=== PATIENT | female | born 1940 | race Caucasian/White ===

== ENCOUNTER 2017-06-07 08:48 | Outpatient (CLI) | payer MEDICARE, BC | END 2017-06-07 08:49 | disposition home or self-care (01) | LOC: BICMAMMO 08:48 | PROVIDERS: ATTEND Obstetrics & Gynecology | DX: Z12.31 Encounter for screening mammogram for malignant neoplasm of breast (principal) | CPT/HCPCS: 77063; 77067 ==

== ENCOUNTER 2017-12-12 20:04 | Emergency (ER) | payer MEDICARE, BC ==
[2017-12-12] MEDS ORDERED: Dexamethasone 4 mg/ml Vial ONE (22:36)
[2017-12-12] MEDS ORDERED: diphenhydrAMINE 50 MG/ML VIAL ONE (22:36)
[2017-12-12] MEDS ORDERED: Metoclopramide HCl 10 MG/2 ML VIAL ONE ×2 (22:37→23:27)
[2017-12-12 23:00] LABS: #Basophils 0.1 thou/uL (0.0-0.2); #Eosinphils 0.2 thou/uL (0.0-0.7); #Lymphocytes 1.5 thou/uL (1.20-3.40); #Monocytes 0.6 thou/uL (0.11-0.59); #Neutrophils 3.3 thou/uL (1.40-6.50); %Basophils 1.2 % (0.0-1.0); %Lymphocytes 26.1 % (21.0-51.0); %Monocytes 10.8 % (0.0-10.0); %Neutrophils 57.9 % (42.0-75.0); Hemoglobin 13.2 g/dL (12.0-16.0); Mean Corpuscular Hemoglobin 32.1 pg (27.0-31.0); Mean Corpuscular Volume 91.7 fL (78.0-98.0); Mean Platelet Volume 6.5 fL (7.4-10.4); Platelet Count 256 thou/uL (130-400); RBC Distribution Width 12.4 % (11.5-14.5); Red Blood Cell (RBC) Count 4.12 mill/uL (4.20-5.40); White Blood Cell (WBC) Count 5.8 thou/uL (4.8-10.8)
[2017-12-12 23:24] LABS: ALT (SGPT) 22 U/L (8-55); AST (SGOT) 24 U/L (5-34); Albumin 4.4 g/dL (3.4-4.8); Alkaline Phosphatase 112 U/L (40-150); Anion Gap 14 mmol/L (10-20); BUN (Urea Nitrogen) 13 mg/dL (9.8-20.1); Bilirubin, Total 0.5 mg/dL (0.2-1.2); CK (CPK) 112 U/L (29-168); Calc. Creatinine Clearance 0 mL/min (70-130); Calcium 10.3 mg/dL (7.8-10.44); Carbon Dioxide 24 mmol/L (23-31); Chloride 102 mmol/L (98-107); Estimated GFR-MDRD 77; Globulin 2.8 g/dL (2.4-3.5); Glucose 101 mg/dL (83-110); Lipase 86 U/L (8-78); Potassium 4.1 mmol/L (3.5-5.1); Protein, Total 7.2 g/dL (6.0-8.3); Sodium 136 mmol/L (136-145)
[2017-12-12 23:27] LABS: CKMB 1.8 ng/mL (0-6.6); Troponin I Less than 0.010 ng/mL (< 0.028)
--- NOTE | 2017-12-12 23:56 | CT ---
CT BRAIN WITHOUT CONTRAST 12/12/17 HISTORY: Headache. COMPARISON: CT brain 01/20/09. FINDINGS: There appears to be some chronic atrophy of the left posterior occipital lobe. This appears similar t o the 2009 examination. Moderate subcortical and deep white matter microvascular ischemic changes, ad vanced from the comparison examination. 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 Mucosal retention cyst right maxillary sinus. Calvarium is intact. Mastoids are clear. IMPRESSION: Chronic changes. No acute intracranial abnormality. POS: [facility]
== END 2017-12-13 00:21 | disposition home or self-care (01) ==
LOC: ERS 20:04
DX: R51 Headache (principal); I10 Essential (primary) hypertension; G43.909 Migraine, unspecified, not intractable, without status migrainosus; E78.5 Hyperlipidemia, unspecified; J45.909 Unspecified asthma, uncomplicated
CPT/HCPCS: 70450; 80053; 82550; 82553; 83690; 83880; 84484; 85025; 93005; 96374; 96375; J1100; J1200; J2765

== ENCOUNTER 2018-06-14 14:27 | Outpatient (CLI) | payer MEDICARE, BC ==
[2018-06-14 15:03] LABS: Estimated GFR-MDRD - POC Greater than 90
--- NOTE | 2018-06-14 15:48 | CT ---
ABDOMEN CT WITH CONTRAST PELVIC CT WITH CONTRAST 06/14/18 HISTORY: Abdominal pain, bloating, altered bowel function. COMPARISON: None. FINDINGS: ABDOMEN CT: Lung bases are clear. Heart size is normal. No pericardial effusion. There is atherosclerosis of the descending thoracic aorta and abdominal aorta. No aneurysm or periaortic fat stranding. Gallbladder is surgically absent. Portal vein is patent. Liver, spleen, pancreas and adrenal glands have appropriate attenuation and enhancement. No gastrohepatic, retrocrural or periportal lymphadenopathy. No mesenteric mass, lymphadenopathy, free air or free fluid. Symmetric enhancement of the kidneys. There are bilateral nonobstructing intrarenal calculi measuring 2 to 3 mm. Subcentimeter hypodensities in the left and right renal cortex are too small to character ize but are statistically favored to be cysts. Bilaterally, no obstructive uropathy. No mesenteric ma ss, lymphadenopathy, free air or free fluid. Gastric mucosal, duodenum, and multiple normal caliber small bowel loops are identified. Ileocecal ju nction is normal. Surgically absent appendix. Nevertheless, no inflammation of the cecal apex. Nondis tended, nondilated colon with scattered fecal material. CT PELVIS: Uterus and adnexal structures are unremarkable. There is no pelvic mass, lymphadenopathy, free air o r free fluid. No lytic or blastic lesions in the osseous structures. Mild rightward curvature of the lumbar spine. IMPRESSION: No acute abnormality in the abdomen or pelvis. POS: [facility]
[2018-06-14] MEDS ORDERED: Iopamidol 370 76% 100 ML VIAL ONE (16:42)
== END 2018-06-14 14:28 | disposition home or self-care (01) ==
LOC: BICCT 14:27
PROVIDERS: ATTEND Physician Assistant Medical
DX: R10.84 Generalized abdominal pain (principal); R14.0 Abdominal distension (gaseous); R19.4 Change in bowel habit
CPT/HCPCS: 74177; 82565; Q9967

== ENCOUNTER 2018-07-10 11:53 | Outpatient (CLI) | payer MEDICARE, BC ==
--- NOTE | 2018-07-10 13:32 | RAD ---
CHEST TWO VIEWS: History: Pneumonia. Comparison: 07-27-16, 04-29-16 FINDINGS: Normal cardiac silhouette. The pulmonary vessels and hilum are normal. Costophrenic angles are clear. No consolidation or mass. Lungs are hyperinflated. No pneumothorax or acute osseous abnormalities. 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 Stable rightward curvature of the upper lumbar spine. IMPRESSION: Hyperinflation. No acute cardiopulmonary process. POS: [facility]
== END 2018-07-10 11:54 | disposition home or self-care (01) ==
LOC: BICRAD 11:53
PROVIDERS: ATTEND Family Medicine
DX: J18.9 Pneumonia, unspecified organism (principal); R91.8 Other nonspecific abnormal finding of lung field
CPT/HCPCS: 71046

== ENCOUNTER 2018-12-28 17:44 | Observation (INO) | payer MEDICARE, BC ==
--- NOTE | 2018-12-28 18:38 | RAD ---
EXAM: Single view of the chest HISTORY: Cough COMPARISON: None FINDINGS: Single view of the chest shows a normal sized cardiomediastinal silhouette. There is no marcel dence of consolidation, mass, or pleural effusion. The bones are unremarkable. IMPRESSION: No evidence of acute cardiopulmonary disease
[2018-12-28 18:40] LABS: Bilirubin Negative (Negative); Blood, Urine Negative (Negative); Clarity Clear (Clear); Glucose, Urine (Dipstick) Normal (Negative); Leukocyte Negative Leu/uL (Negative); Nitrite Negative (Negative); Protein, Urine (Dipstick) Negative (Neg-Trace); Urobilinogen Normal mg/dL (Less than 2)
[2018-12-28 18:40] LABS: #Lymphocytes 1.2 thou/uL (1.20-3.40); #Neutrophils 14.8 thou/uL (1.40-6.50); %Basophils 0.2 % (0.0-1.0); %Eosinophils 0.1 % (0.0-10.0); %Lymphocytes 6.9 % (21.0-51.0); %Monocytes 5.6 % (0.0-10.0); %Neutrophils 87.2 % (42.0-75.0); Hemoglobin 11.7 g/dL (12.0-16.0); Mean Corpuscular HGB CONC 35.3 g/dL (32.0-36.0); Mean Corpuscular Hemoglobin 32.2 pg (27.0-31.0); Mean Corpuscular Volume 91.1 fL (78.0-98.0); Mean Platelet Volume 5.8 fL (7.4-10.4); Platelet Count 396 thou/uL (130-400); RBC Distribution Width 12.1 % (11.5-14.5); Red Blood Cell (RBC) Count 3.65 mill/uL (4.20-5.40)
[2018-12-28 18:53] LABS: ALT (SGPT) 25 U/L (8-55); AST (SGOT) 20 U/L (5-34); Albumin 4.4 g/dL (3.4-4.8); Alkaline Phosphatase 133 U/L (40-150); Anion Gap 11 mmol/L (10-20); BUN (Urea Nitrogen) 14 mg/dL (9.8-20.1); Bilirubin, Total 0.5 mg/dL (0.2-1.2); Calc. Creatinine Clearance 0 mL/min (70-130); Calcium 9.6 mg/dL (7.8-10.44); Carbon Dioxide 21 mmol/L (23-31); Chloride 95 mmol/L (98-107); Estimated GFR-MDRD 75; Globulin 2.7 g/dL (2.4-3.5); Glucose 117 mg/dL (83-110); Lipase 53 U/L (8-78); Potassium 4.3 mmol/L (3.5-5.1); Protein, Total 7.1 g/dL (6.0-8.3); Sodium 123 mmol/L (136-145)
[2018-12-28] MEDS ORDERED: Azithromycin 250 MG TAB ONE (19:59)
[2018-12-28] MEDS ORDERED: cefTRIAXone\\ROCEPHIN 1 GM VIAL ONE (19:59)
[2018-12-28] MEDS ORDERED: predniSONE 20 MG TAB ONE (20:31)
[2018-12-28 22:47] VITALS: BMI 20.1
[2018-12-28] MEDS ORDERED: Acetaminophen 325 MG TAB PO PRN (22:48)
[2018-12-28] MEDS ORDERED: Ondansetron ODT 4 MG TAB PO PRN (22:48)
[2018-12-28] MEDS ORDERED: Acetaminophen 650 MG Suppository PR PRN (22:48)
[2018-12-28] MEDS ORDERED: Ondansetron PF 4 MG/2 ML Vial IVP PRN (22:48)
[2018-12-28] MEDS ORDERED: Benzonatate 100 MG CAP PO PRN (22:52)
[2018-12-28] MEDS ORDERED: guaiFENesin 200 MG TAB PO PRN (22:52)
[2018-12-28] MEDS ORDERED: Sodium Chloride 0.9% 1,000 ML IV SCH (23:00)
[2018-12-29] MEDS ORDERED: SUMAtriptan Succinate 25 MG TAB PO PRN (01:31)
[2018-12-29] MEDS ORDERED: SUMAtriptan Succinate 25 MG TAB PO SCH (01:45)
[2018-12-29] MEDS ORDERED: Topiramate 25 MG TAB PO SCH ×3 (01:45→21:00)
--- NOTE | 2018-12-29 05:00 | HP ---
ADMISSION TIME: 10:00 p.m. PRIMARY CARE PHYSICIAN: Dr. Catracho Yang. CHIEF COMPLAINT: Cough and fever. HISTORY OF PRESENT ILLNESS: Ms. Trejo is a pleasant 78-year-old woman with a history of asthma who presented to the emergency department complaining of a low-grade temperature yesterday with a persistent cough. She apparently was recently treated for an upper respiratory tract infection with doxycycline and did not improve. She was seen by her primary care physician yesterday home on Sunday and states there was concern for a viral upper respiratory tract infection. However, she was advised to come to the emergency department if she continued to feel unwell. She had a temperature of 99 at home. In the emergency department, she underwent an EKG that showed normal sinus rhythm with a heart rate of 89. She had laboratory studies done notable for white cell count of 17 and neutrophil count of 87.2. Hemoglobin 11.7 and hematocrit 33.2. Sodium was 123, potassium 4.3, chloride 95, GFR 75. LFTs unremarkable. Troponin negative. Lipase 53. BNP 42.5. She also underwent urinalysis which was unremarkable. A chest x-ray was done showing no evidence of acute cardiopulmonary disease. The patient was started on IV antibiotics with Rocephin and azithromycin for presumed infective exacerbation of asthma. The patient was given prednisone 50 mg and also treated with DuoNebs. 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 However, her improved approximately a dsfr-ndh-r-half ago while she continued to get worse. She denies any associated chest pain or hemoptysis. No neck pain or stiffness. Denies any nausea or vomiting. No abdominal pain or cramping. Moving her bowels as normal and reports a good appetite. Denies having any urinary symptoms. All other review of systems negative. PAST MEDICAL HISTORY: 1. Migraines. 2. Hyperlipidemia. 3. Hypertension. 4. Asthma. PAST SURGICAL HISTORY: 1. Sinus surgery. 2. Right wrist surgery. 3. Right ovary removed. 4. Appendectomy. 5. Cholecystectomy. 6. Tonsillectomy. SOCIAL HISTORY: The patient is fully independent. Denies any tobacco use, alcohol consumption, or illicit drug use. PHYSICAL EXAMINATION: GENERAL: The patient appears well developed, well nourished, is in no acute distress. VITAL SIGNS: Temperature 98.7, pulse 78, respirations 20, O2 saturation 96% on room air, blood pressure 176/89, of note, initial blood pressure was 236/101. HEENT: Normocephalic and atraumatic. Pupils are equal, round, and reactive to light. Sclerae icterus. Oropharynx is clear. No exudates, erythema or lesions. NECK: Supple. LUNGS: Notable for bilateral expiratory wheezes at the bases. No crackles. CARDIAC: Regular rate and rhythm. ABDOMEN: Soft, nontender, nondistended. Normoactive bowel sounds present. EXTREMITIES: No lower leg swelling or edema. NEUROLOGIC: Alert and oriented x3. SKIN: Without rash or jaundice. INVESTIGATIONS: As mentioned above in HPI. IMPRESSION AND PLAN: Ms. Trejo is a pleasant 78-year-old woman who has been referred for management of the following. 1. Respiratory tract infection. She has a lower respiratory tract infection. The patient with low-grade temp at home, noted to have leukocytosis with left shift. She has been initiated on IV antibiotics which we will continue. We have added lactic acid. Lactic acid has come back normal. 2. Asthma. The patient states she often has flares of her asthma when she has an infection. She does not smoke. We will continue DuoNeb. We will also give guaifenesin and Tessalon Perles for her cough. 3. Hypertension. We will resume her home medications and monitor her blood pressure. 4. Migraines. The patient on Imitrex which we will resume. 5. Gastrointestinal prophylaxis with famotidine. 6. Deep venous thrombosis prophylaxis. Mechanical SCDs. The patient is ambulatory. 7. Code status full. Her surrogate decision maker is her , Samm Trejo. The patient's case was discussed with attending who agrees upon care as described above. Job ID: [id number]
[2018-12-29] MEDS ORDERED: Mometasone/Formoterol 120 PUFF INHALER INH SCH (06:30)
[2018-12-29] MEDS: Multivit, Therapeutic 1 TAB PO SCH ×2 (07:51→07:55)
[2018-12-29] MEDS ORDERED: Ezetimibe 10 MG TAB PO SCH (09:00)
[2018-12-29] MEDS ORDERED: Fish Oil 1,000 MG CAP PO SCH (09:00)
[2018-12-29] MEDS ORDERED: Famotidine/PF 20 mg/2ml Vial SLOW IVP SCH (09:00)
[2018-12-29] MEDS ORDERED: Fluticasone Propionate Nasal Spray 16 gm Bottle NASAL SCH (09:00)
[2018-12-29] MEDS ORDERED: Lisinopril 10 MG TAB PO SCH (09:00)
[2018-12-29 10:33] LABS: #Lymphocytes 0.9 thou/uL (1.20-3.40); #Monocytes 0.8 thou/uL (0.11-0.59); #Neutrophils 13.5 thou/uL (1.40-6.50); %Lymphocytes 6.2 % (21.0-51.0); %Neutrophils 88.7 % (42.0-75.0); Hemoglobin 12.2 g/dL (12.0-16.0); Mean Corpuscular HGB CONC 34.1 g/dL (32.0-36.0); Mean Corpuscular Hemoglobin 31.5 pg (27.0-31.0); Mean Corpuscular Volume 92.2 fL (78.0-98.0); Mean Platelet Volume 6.1 fL (7.4-10.4); Platelet Count 414 thou/uL (130-400); RBC Distribution Width 12.3 % (11.5-14.5); Red Blood Cell (RBC) Count 3.89 mill/uL (4.20-5.40); White Blood Cell (WBC) Count 15.2 thou/uL (4.8-10.8)
[2018-12-29 10:54] LABS: Anion Gap 14 mmol/L (10-20); BUN (Urea Nitrogen) 12 mg/dL (9.8-20.1); Calc. Creatinine Clearance 51 mL/min (70-130); Calcium 9.5 mg/dL (7.8-10.44); Carbon Dioxide 17 mmol/L (23-31); Chloride 103 mmol/L (98-107); Estimated GFR-MDRD 78; Glucose 132 mg/dL (83-110); Sodium 130 mmol/L (136-145)
[2018-12-29 12:17] VITALS: BP 110/65; TEMP 98
[2018-12-29] MEDS ORDERED: Azithromycin 500 MG in Sodium Chloride 0.9% 250 ML 250 ML IVPB SCH (20:00)
[2018-12-29] MEDS ORDERED: cefTRIAXone\\ROCEPHIN 1 GM in Sodium Chloride 0.9% 100 ML IVPB SCH (20:00)
--- NOTE | 2018-12-30 00:52 | DIS ---
DATE OF ADMISSION: 12/28/2018 DATE OF DISCHARGE: 12/29/2018 DISCHARGE DIAGNOSES: 1. Upper respiratory infection, most likely secondary to viral. 2. History of asthma. 3. Hypertension. 4. Migraines. HOSPITAL COURSE: The patient is a 78-year-old female, who recently presented to the hospital with complaints of worsening upper respiratory symptoms, worsening cough and shortness of breath. The patient was seen in the ER. She was recently started on doxycycline and was given initially a Medrol Dosepak and then her Primary Care also gave her a shot of steroids. The patient stated that she started feeling worse, so she came into the ER for further evaluation. The patient initially was treated for community-acquired pneumonia. However, her chest x-ray was completely normal. She did have leukocytosis, which was most likely secondary to her recent steroid shots. Upon my evaluation, the patient was very stable. The patient stated that she wanted to go home. She felt well. Denied any cough or fevers. I explained to the patient that she will continue to take her doxycycline; however, this is most likely viral and also will continue to take her inhaler at home. I have not prescribed her any new steroids. HOME MEDICATIONS: Her home medications will be as of the following. 1. She will take her doxycycline that was prescribed by her PCP. 2. She is on Zetia 10 mg daily. 3. Lisinopril 10 mg daily. 4. Multivitamin one p.o. daily. 5. Topiramate 50 mg daily. 6. Fluticasone salmeterol 2 inhalation b.i.d. 7. Sumatriptan 20 mg q.12 hours p.r.n. PHYSICAL EXAMINATION: VITAL SIGNS: Temperature 98.0, pulse 92, respiratory rate 16, O2 saturation 97% on room air, blood pressure 110/65. GENERAL: She is awake, alert, and oriented x3. Does not appear in distress. CV: S1, S2 present. No murmurs, rubs, or gallops. LUNGS: Clear to auscultation. No rhonchi or wheezes noted. ABDOMEN: Soft and nontender. Bowel sounds are present x2. Again, she will be discharged home. She will follow up with her primary as needed. I have told her to get some rest for the next couple of days and continue her medications and follow up with her primary as needed. Job ID: [id number]
--- NOTE | 2019-01-04 15:55 | EKG ---
Test Reason : Blood Pressure : / mmHG Vent. Rate : 089 BPM Atrial Rate : 089 BPM P-R Int : 142 ms QRS Dur : 086 ms QT Int : 372 ms P-R-T Axes : 044 -05 021 degrees QTc Int : 452 ms Normal sinus rhythm Septal infarct , age undetermined Abnormal ECG Confirmed by FLORENTINO TERRY ([id number]), television news video editor KOTA ÁLVAREZ ([id number]) on 01/04/2019 3:54:52 PM Referred By: Confirmed By:FLORENTINO TERRY
== END 2018-12-29 13:10 | disposition home or self-care (01) ==
LOC: ERS 17:44 → T4-B 22:03
PROVIDERS: ADMIT Hospitalist; ATTEND Hospitalist
DX: J06.9 Acute upper respiratory infection, unspecified (principal); J45.909 Unspecified asthma, uncomplicated; I10 Essential (primary) hypertension; G43.909 Migraine, unspecified, not intractable, without status migrainosus; E78.5 Hyperlipidemia, unspecified; Z79.899 Other long term (current) drug therapy; Z88.8 Allergy status to other drugs, medicaments and biological substances
CPT/HCPCS: 71045; 80048; 80053; 81003; 83605; 83690; 83880; 83930; 83935; 84300; 84443; 84484; 85025 ×2; 87040; 87086; 87633; 87798 ×2; 93005; 94640 ×3; 96361 ×3; 96374; 96375 ×2; 97139; 99285; G0378 ×3; 36415; J0696; J2405; J7512; J7620; S0028

== ENCOUNTER 2019-01-16 21:58 | Emergency (ER) | payer MEDICARE, BC ==
[2019-01-16 22:54] LABS: #Eosinphils 0.1 thou/uL (0.0-0.7); #Lymphocytes 1.3 thou/uL (1.20-3.40); #Monocytes 0.7 thou/uL (0.11-0.59); %Basophils 0.1 % (0.0-1.0); %Monocytes 9.4 % (0.0-10.0); %Neutrophils 71.5 % (42.0-75.0); Hemoglobin 12.1 g/dL (12.0-16.0); Mean Corpuscular HGB CONC 35.2 g/dL (32.0-36.0); Mean Corpuscular Hemoglobin 32.1 pg (27.0-31.0); Mean Corpuscular Volume 91.1 fL (78.0-98.0); Mean Platelet Volume 5.9 fL (7.4-10.4); Platelet Count 272 thou/uL (130-400); RBC Distribution Width 12.4 % (11.5-14.5); Red Blood Cell (RBC) Count 3.78 mill/uL (4.20-5.40)
--- NOTE | 2019-01-16 22:55 | CT ---
Exam: Head CT without contrast HISTORY: Headache. Nausea. Vomiting. COMPARISON: 12/12/2017 FINDINGS: Hemorrhage: No intraparenchymal hemorrhage or extra-axial hematoma. Brain parenchyma: Cortical cardozo-white matter differentiation is preserved. No mass effect or midline shift. Basilar cisterns are patent.Stable white matter hypodensities due to chronic small vessel ischemic change Ventricular system: Ventricles and sulci are patent and symmetric. Calvarium: Intact. Sinuses and mastoid air cells: Partial opacification of the right frontal sinus and right sphenoid si nus. Adequate mastoid air cell aeration IMPRESSION: 1. No acute intracranial process. 2. Age-appropriate atrophy. 3. Chronic small vessel ischemic changes white matter 4. Right sinus opacification as above
[2019-01-16] MEDS ORDERED: Acetaminophen 500 MG TAB ONE (23:01)
[2019-01-16] MEDS ORDERED: Metoclopramide HCl 10 MG/2 ML VIAL ONE (23:02)
[2019-01-16] MEDS ORDERED: Ketorolac Tromethamine 30 MG/ML VIAL ONE (23:02)
[2019-01-16 23:13] LABS: ALT (SGPT) 22 U/L (8-55); AST (SGOT) 19 U/L (5-34); Albumin 4.2 g/dL (3.4-4.8); Alkaline Phosphatase 108 U/L (40-110); Anion Gap 10 mmol/L (10-20); BUN (Urea Nitrogen) 10 mg/dL (9.8-20.1); Bilirubin, Total 0.7 mg/dL (0.2-1.2); Calc. Creatinine Clearance 0 mL/min (70-130); Calcium 10.1 mg/dL (7.8-10.44); Carbon Dioxide 25 mmol/L (23-31); Chloride 97 mmol/L (98-107); Estimated GFR-MDRD 77; Globulin 2.6 g/dL (2.4-3.5); Glucose 105 mg/dL (83-110); Potassium 3.7 mmol/L (3.5-5.1); Protein, Total 6.8 g/dL (6.0-8.3); Sodium 128 mmol/L (136-145)
[2019-01-16] MEDS ORDERED: diphenhydrAMINE 50 MG/ML VIAL ONE (23:31)
== END 2019-01-17 01:49 | disposition home or self-care (01) ==
LOC: ERS 21:58
DX: R51 Headache (principal); E87.1 Hypo-osmolality and hyponatremia; E78.5 Hyperlipidemia, unspecified; E78.00 Pure hypercholesterolemia, unspecified; I10 Essential (primary) hypertension; J45.909 Unspecified asthma, uncomplicated; G43.909 Migraine, unspecified, not intractable, without status migrainosus; Z79.899 Other long term (current) drug therapy; Z79.51 Long term (current) use of inhaled steroids
CPT/HCPCS: 70450; 80053; 85025; 96361; 96374; 96375; J1200; J1885; J2765

== ENCOUNTER 2019-03-17 13:42 | Outpatient (CLI) | payer MEDICARE, BC ==
--- NOTE | 2019-03-18 08:37 | MMO ---
Bilateral MAMMO Bilat Screen [facility]. CLINICAL HISTORY: Patient is 79 years old and is seen for screening. The patient has no family history of breast cancer. The patient has a history of other cancer in November,. VIEWS: The views performed were: bilateral craniocaudal with tomosynthesis and bilateral mediolateral oblique with tomosynthesis. FILMS COMPARED: The present examination has been compared to prior imaging studies performed at [facility] on 07/18/2013, 07/21/2014, 10/22/2015 and 06/07/2017. This study has been interpreted with the assistance of computer-aided detection. MAMMOGRAM FINDINGS: There are scattered fibroglandular densities. There are no suspicious masses, suspicious calcifications, or new areas of architectural distortion. IMPRESSION: THERE IS NO MAMMOGRAPHIC EVIDENCE OF MALIGNANCY. A ROUTINE FOLLOW-UP MAMMOGRAM IN 1 YEAR IS RECOMMENDED. THE RESULTS OF THIS EXAM WERE SENT TO THE PATIENT. ACR BI-RADS Category 1 - Negative MAMMOGRAPHY NOTE: 1. A negative mammogram report should not delay a biopsy if a dominant of clinically suspicious mass is present. 2. Approximately 10% to 15% of breast cancers are not detected by mammography. 3. Adenosis and dense breasts may obscure an underlying neoplasm. Reported by: BO CREWS MD Electonically Signed: [id number]
== END 2019-03-17 13:43 | disposition home or self-care (01) ==
LOC: BICMAMMO 13:42
PROVIDERS: ATTEND Family Medicine
DX: Z12.31 Encounter for screening mammogram for malignant neoplasm of breast (principal); Z85.89 Personal history of malignant neoplasm of other organs and systems
CPT/HCPCS: 77063; 77067

== ENCOUNTER 2020-04-20 08:26 | Outpatient (CLI) | payer MEDICARE, BC ==
--- NOTE | 2020-04-20 11:22 | RAD ---
CHEST 2 VIEWS: HISTORY: Followup pneumonia. COMPARISON: 08/13/2019. FINDINGS: Minimal stable increased markings noted bilaterally. Heart size is within normal limits. 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 The increased markings b ilaterally appear stable in the upper lung zones and slightly more prominent in the left base. IMPRESSION: Slightly worsening increased linear interstitial markings bilaterally, particularly in the left base, this could represent a focal area of minimal early pneumonitis. Continue short-term followup. POS: [facility]
== END 2020-04-20 08:27 | disposition home or self-care (01) ==
LOC: BICRAD 08:26
PROVIDERS: ATTEND Allergy & Immunology
DX: J18.9 Pneumonia, unspecified organism (principal)
CPT/HCPCS: 71046

== ENCOUNTER 2020-09-13 07:59 | Observation (INO) | payer MEDICARE, BC ==
[2020-09-13 08:29] LABS: #Basophils 0.1 thou/uL (0.0-0.2); #Lymphocytes 1.6 thou/uL (1.20-3.40); #Monocytes 0.6 thou/uL (0.11-0.59); #Neutrophils 3.1 thou/uL (1.40-6.50); %Basophils 1.4 % (0.0-1.0); %Eosinophils 0.2 % (0.0-10.0); %Lymphocytes 29.5 % (21.0-51.0); %Monocytes 10.5 % (0.0-10.0); %Neutrophils 58.4 % (42.0-75.0); Hemoglobin 12.8 g/dL (12.0-16.0); Mean Corpuscular HGB CONC 33.3 g/dL (32.0-36.0); Mean Corpuscular Hemoglobin 30.9 pg (27.0-31.0); Mean Corpuscular Volume 92.7 fL (78.0-98.0); Mean Platelet Volume 7.4 fL (7.4-10.4); Platelet Count 228 thou/uL (130-400); RBC Distribution Width 12.1 % (11.5-14.5); Red Blood Cell (RBC) Count 4.13 mill/uL (4.20-5.40); White Blood Cell (WBC) Count 5.3 thou/uL (4.8-10.8)
[2020-09-13] MEDS ORDERED: Iopamidol-370 76% 500 ML 1 ML ONE (08:49)
[2020-09-13 08:51] LABS: ALT (SGPT) 15 U/L (8-55); AST (SGOT) 21 U/L (5-34); Alkaline Phosphatase 114 U/L (40-110); Anion Gap 10 mmol/L (10-20); BUN (Urea Nitrogen) 12 mg/dL (9.8-20.1); Bilirubin, Total 0.4 mg/dL (0.2-1.2); Calc. Creatinine Clearance 0 mL/min (70-130); Calcium 9.3 mg/dL (7.8-10.44); Carbon Dioxide 23 mmol/L (23-31); Chloride 108 mmol/L (98-107); Globulin 2.9 g/dL (2.4-3.5); Glucose 100 mg/dL (83-110); Potassium 3.8 mmol/L (3.5-5.1); Protein, Total 6.9 g/dL (5.8-8.1); Sodium 137 mmol/L (136-145)
[2020-09-13 08:53] LABS: INR-International Normal Ratio 0.9; PTT 26.8 sec (22.9-36.1); Prothrombin Time 11.9 sec (12.0-14.7)
[2020-09-13] MEDS ORDERED: Clopidogrel Bisulfate 300 MG TAB ONE (09:08)
[2020-09-13 09:42] LABS: Bilirubin Negative (Negative); Blood, Urine Negative (Negative); Clarity Clear (Clear); Glucose, Urine (Dipstick) Normal (Negative); Ketone, Urine Negative (Negative); Leukocyte Negative Leu/uL (Negative); Nitrite Negative (Negative); Protein, Urine (Dipstick) Negative (Neg-Trace); Specific Gravity, Urine 1.022 (1.002-1.036); Urobilinogen Normal mg/dL (Less than 2)
[2020-09-13] MEDS ORDERED: hydrALAZINE 20 MG/ML VIAL SLOW IVP PRN (10:48)
[2020-09-13 11:45] LABS: Troponin I Less than 0.010 ng/mL (< 0.028)
[2020-09-13 13:23] VITALS: BMI 20.1
[2020-09-13 14:13] LABS: SARS-CoV-2 PCR by NAA Not Detected (NotDetected)
[2020-09-13 14:45] LABS: Troponin I Less than 0.010 ng/mL (< 0.028)
[2020-09-13] MEDS ORDERED: Pravastatin Sodium 40 MG TAB PO SCH (21:00)
[2020-09-13] MEDS ORDERED: Atorvastatin Calcium 10 MG TAB PO SCH (21:00)
[2020-09-14 06:14] LABS: Cardiac Risk 5.2 (Less than 4.5)
[2020-09-14 06:15] LABS: ALT (SGPT) 18 U/L (8-55); AST (SGOT) 21 U/L (5-34); Alkaline Phosphatase 114 U/L (40-110); Bilirubin, Direct 0.2 mg/dL (0.1-0.3); Bilirubin, Total 0.7 mg/dL (0.2-1.2); Protein, Total 6.6 g/dL (5.8-8.1)
[2020-09-14 07:37] VITALS: TEMP 98.3
[2020-09-14] MEDS ORDERED: Clopidogrel Bisulfate 75 MG TAB PO SCH (09:00)
[2020-09-14 15:43] VITALS: BP 139/81
[2020-09-14] MEDS ORDERED: Atorvastatin Calcium 20 MG TAB PO SCH (21:00)
[2020-09-14] MEDS ORDERED: Mirtazapine 15 MG TAB PO SCH (21:00)
== END 2020-09-14 19:27 | disposition home or self-care (01) ==
LOC: ERS 07:59 → ERHOLD 09:11 → 2SE 11:42
PROVIDERS: ADMIT Internal Medicine; ATTEND Internal Medicine
DX: I63.9 Cerebral infarction, unspecified (principal); R47.81 Slurred speech; G81.91 Hemiplegia, unspecified affecting right dominant side; R47.01 Aphasia; I10 Essential (primary) hypertension; E78.5 Hyperlipidemia, unspecified; G43.909 Migraine, unspecified, not intractable, without status migrainosus; J45.20 Mild intermittent asthma, uncomplicated; J32.9 Chronic sinusitis, unspecified; I08.1 Rheumatic disorders of both mitral and tricuspid valves; Z79.899 Other long term (current) drug therapy; Z88.6 Allergy status to analgesic agent; Z20.822 Contact with and (suspected) exposure to COVID-19
CPT/HCPCS: 70450; 70496; 70498; 70551; 71045; 80053; 80061; 80076; 81003; 82962; 84484 ×2; 85025; 85610; 85730; 93005; 93306; 95712; 95819; 95957; 97116; 99285; G0378 ×3; U0003; U0005; 36415; 36416; 87635; Q9967

== ENCOUNTER 2020-09-15 08:14 | Inpatient (IN) | payer MEDICARE, BC ==
[2020-09-15 09:01] LABS: #Basophils 0.1 thou/uL (0.0-0.2); #Lymphocytes 1.5 thou/uL (1.20-3.40); #Monocytes 0.6 thou/uL (0.11-0.59); #Neutrophils 3.5 thou/uL (1.40-6.50); %Basophils 1.3 % (0.0-1.0); %Eosinophils 0.3 % (0.0-10.0); %Lymphocytes 26.7 % (21.0-51.0); %Monocytes 9.8 % (0.0-10.0); %Neutrophils 61.9 % (42.0-75.0); Hemoglobin 12.9 g/dL (12.0-16.0); Mean Corpuscular HGB CONC 33.8 g/dL (32.0-36.0); Mean Corpuscular Hemoglobin 31.2 pg (27.0-31.0); Mean Corpuscular Volume 92.3 fL (78.0-98.0); Mean Platelet Volume 7.4 fL (7.4-10.4); Platelet Count 238 thou/uL (130-400); RBC Distribution Width 12.2 % (11.5-14.5); Red Blood Cell (RBC) Count 4.15 mill/uL (4.20-5.40); White Blood Cell (WBC) Count 5.7 thou/uL (4.8-10.8)
[2020-09-15] MEDS ORDERED: Acetaminophen 325 MG TAB ONE (09:02)
[2020-09-15 09:22] LABS: ALT (SGPT) 19 U/L (8-55); AST (SGOT) 20 U/L (5-34); Albumin 3.8 g/dL (3.4-4.8); Alkaline Phosphatase 112 U/L (40-110); Anion Gap 11 mmol/L (10-20); BUN (Urea Nitrogen) 19 mg/dL (9.8-20.1); Bilirubin, Total 0.8 mg/dL (0.2-1.2); Calc. Creatinine Clearance 0 mL/min (70-130); Calcium 9.6 mg/dL (7.8-10.44); Carbon Dioxide 22 mmol/L (23-31); Chloride 108 mmol/L (98-107); Globulin 2.6 g/dL (2.4-3.5); Glucose 132 mg/dL (83-110); Magnesium 2.1 mg/dL (1.6-2.6); Potassium 3.8 mmol/L (3.5-5.1); Protein, Total 6.4 g/dL (5.8-8.1); Sodium 137 mmol/L (136-145)
[2020-09-15] MEDS ORDERED: Metoprolol Tartrate 5 MG/5 ML VIAL IVP PRN (11:04)
[2020-09-15 12:04] LABS: Bilirubin Negative (Negative); Blood, Urine Trace (Negative); Glucose, Urine (Dipstick) Negative (Negative); Ketone, Urine Negative (Negative); Leukocyte Large (Negative); Nitrite Negative (Negative); Protein, Urine (Dipstick) 30 mg/dL (Neg-Trace); Specific Gravity, Urine 1.015 (1.005-1.030); Urobilinogen 0.2 mg/dL (Less than 2); pH, Urine 7.5 (5.0-9.0)
[2020-09-15 12:06] LABS: Troponin I Less than 0.010 ng/mL (< 0.028)
[2020-09-15 12:08] LABS: Clarity Cloudy (Clear)
[2020-09-15 12:13] LABS: RBC/HPF 0-3 HPF (0-3)
[2020-09-15 12:15] LABS: Bacteria/HPF 1+ HPF (None Seen); Renal Epithelial 0-3 HPF (None Seen); Squamous Epithelial 0-3 HPF (0-3); Transitional Epithelial 0-3 HPF (None Seen)
[2020-09-15 12:43] VITALS: BMI 20.2
[2020-09-15 15:31] LABS: Troponin I Less than 0.010 ng/mL (< 0.028)
[2020-09-15] MEDS ORDERED: Fluticasone Propionate Nasal Spray 16 gm Bottle NASAL PRN (19:41)
[2020-09-15] MEDS: Atorvastatin Calcium 20 MG TAB PO SCH (22:38)
[2020-09-15] MEDS ORDERED: Amitriptyline HCl 25 MG TAB PO SCH (23:15)
[2020-09-15] MEDS: Acetaminophen 325 MG TAB PO PRN (23:20)
[2020-09-16 05:05] LABS: #Basophils 0.1 thou/uL (0.0-0.2); #Lymphocytes 1.8 thou/uL (1.20-3.40); #Monocytes 1.2 thou/uL (0.11-0.59); #Neutrophils 5.8 thou/uL (1.40-6.50); %Basophils 0.6 % (0.0-1.0); %Eosinophils 0.1 % (0.0-10.0); %Lymphocytes 20.7 % (21.0-51.0); %Monocytes 13.2 % (0.0-10.0); %Neutrophils 65.4 % (42.0-75.0); Hemoglobin 11.8 g/dL (12.0-16.0); Mean Corpuscular HGB CONC 33.2 g/dL (32.0-36.0); Mean Corpuscular Hemoglobin 30.4 pg (27.0-31.0); Mean Corpuscular Volume 91.6 fL (78.0-98.0); Mean Platelet Volume 7.4 fL (7.4-10.4); Platelet Count 224 thou/uL (130-400); RBC Distribution Width 12.2 % (11.5-14.5); Red Blood Cell (RBC) Count 3.89 mill/uL (4.20-5.40); White Blood Cell (WBC) Count 8.9 thou/uL (4.8-10.8)
[2020-09-16] MEDS: Acetaminophen 325 MG TAB PO PRN (05:15)
[2020-09-16 05:29] LABS: Anion Gap 11 mmol/L (10-20); BUN (Urea Nitrogen) 21 mg/dL (9.8-20.1); Calc. Creatinine Clearance 41 mL/min (70-130); Calcium 9.4 mg/dL (7.8-10.44); Carbon Dioxide 22 mmol/L (23-31); Chloride 105 mmol/L (98-107); Glucose 109 mg/dL (83-110); Potassium 3.9 mmol/L (3.5-5.1); Sodium 134 mmol/L (136-145)
[2020-09-16] MEDS: Mometasone 100 MCG/Formoterol 5 MCG 120 PUFF INHALER INH SCH ×2 (07:14→19:44)
[2020-09-16] MEDS: Clopidogrel Bisulfate 75 MG TAB PO SCH (08:19)
[2020-09-16] MEDS: Topiramate 25 MG TAB PO SCH (08:19)
[2020-09-16] MEDS: Multivit, Therapeutic 1 TAB PO SCH (08:20)
[2020-09-16] MEDS: Zinc Sulfate 220 MG CAP PO SCH (08:20)
[2020-09-16] MEDS ORDERED: Lisinopril 10 MG TAB PO SCH (09:00)
[2020-09-16] MEDS: Atorvastatin Calcium 20 MG TAB PO SCH (20:16)
[2020-09-16] MEDS ORDERED: Amitriptyline HCl 25 MG TAB PO SCH (21:00)
[2020-09-17] MEDS: Acetaminophen 325 MG TAB PO PRN (05:10)
[2020-09-17] MEDS: Mometasone 100 MCG/Formoterol 5 MCG 120 PUFF INHALER INH SCH ×2 (07:18→19:53)
[2020-09-17] MEDS: Multivit, Therapeutic 1 TAB PO SCH (09:07)
[2020-09-17] MEDS: Clopidogrel Bisulfate 75 MG TAB PO SCH (09:07)
[2020-09-17] MEDS: Topiramate 25 MG TAB PO SCH ×2 (09:08→09:12)
[2020-09-17] MEDS: Zinc Sulfate 220 MG CAP PO SCH (09:08)
[2020-09-17] MEDS: Melatonin 3 MG TAB PO SCH (19:59)
[2020-09-17] MEDS: Atorvastatin Calcium 20 MG TAB PO SCH (19:59)
[2020-09-17] MEDS ORDERED: Amitriptyline HCl 25 MG TAB PO SCH (21:00)
[2020-09-18] MEDS: Acetaminophen 325 MG TAB PO PRN (03:18)
[2020-09-18] MEDS: Mometasone 100 MCG/Formoterol 5 MCG 120 PUFF INHALER INH SCH ×2 (07:39→20:00)
[2020-09-18] MEDS: Topiramate 25 MG TAB PO SCH (09:30)
[2020-09-18] MEDS: Multivit, Therapeutic 1 TAB PO SCH (09:31)
[2020-09-18] MEDS: Clopidogrel Bisulfate 75 MG TAB PO SCH (09:31)
[2020-09-18] MEDS: Zinc Sulfate 220 MG CAP PO SCH (09:31)
[2020-09-18] MEDS ORDERED: Midodrine HCl 5 MG TAB PO SCH ×2 (11:45→21:00)
[2020-09-18] MEDS ORDERED: hydrALAZINE 20 MG/ML VIAL SLOW IVP PRN (20:22)
[2020-09-18] MEDS: Nitroglycerin 2% Ointment 1 INCH/1 GM Packet TOP SCH (21:08)
[2020-09-18] MEDS: Melatonin 3 MG TAB PO SCH (21:08)
[2020-09-18] MEDS: Atorvastatin Calcium 20 MG TAB PO SCH (21:08)
[2020-09-19] MEDS ORDERED: Calcium Carbonate 500 MG ChewTAB PO PRN (02:23)
[2020-09-19] MEDS: Nitroglycerin 2% Ointment 1 INCH/1 GM Packet TOP SCH (06:19)
[2020-09-19] MEDS: Mometasone 100 MCG/Formoterol 5 MCG 120 PUFF INHALER INH SCH ×2 (07:57→18:53)
[2020-09-19] MEDS ORDERED: Ondansetron PF 4 MG/2 ML Vial IVP PRN (09:18)
[2020-09-19] MEDS ORDERED: Lisinopril 10 MG TAB PO SCH ×2 (13:30→21:00)
[2020-09-19] MEDS: Zinc Sulfate 220 MG CAP PO SCH (13:42)
[2020-09-19] MEDS: Clopidogrel Bisulfate 75 MG TAB PO SCH (13:42)
[2020-09-19] MEDS: Multivit, Therapeutic 1 TAB PO SCH (13:42)
[2020-09-19] MEDS: Topiramate 25 MG TAB PO SCH (13:44)
[2020-09-19] MEDS ORDERED: hydrALAZINE 20 MG/ML VIAL SLOW IVP PRN (14:57)
[2020-09-19] MEDS: Atorvastatin Calcium 20 MG TAB PO SCH (20:49)
[2020-09-19] MEDS: Acetaminophen 325 MG TAB PO PRN (20:50)
[2020-09-19] MEDS: Melatonin 3 MG TAB PO SCH ×2 (20:52→21:01)
[2020-09-19] MEDS: Amitriptyline HCl 25 MG TAB PO SCH (20:52)
[2020-09-19] MEDS ORDERED: Lisinopril 20 MG TAB PO SCH (21:00)
[2020-09-19] MEDS ORDERED: Mag-Al 1200 mg/1200 mg/30 ML UDCUP PO PRN (22:05)
[2020-09-20] MEDS: Acetaminophen 325 MG TAB PO PRN ×3 (02:47→18:33)
[2020-09-20] MEDS: Mometasone 100 MCG/Formoterol 5 MCG 120 PUFF INHALER INH SCH ×2 (07:29→20:03)
[2020-09-20] MEDS ORDERED: Amitriptyline HCl 25 MG TAB PO SCH (09:00)
[2020-09-20] MEDS: Multivit, Therapeutic 1 TAB PO SCH (09:06)
[2020-09-20] MEDS: Clopidogrel Bisulfate 75 MG TAB PO SCH (09:06)
[2020-09-20] MEDS: Topiramate 25 MG TAB PO SCH (09:06)
[2020-09-20] MEDS: Zinc Sulfate 220 MG CAP PO SCH (09:07)
[2020-09-20] MEDS: Atorvastatin Calcium 20 MG TAB PO SCH (20:45)
[2020-09-20] MEDS: Amitriptyline HCl 25 MG TAB PO SCH (20:45)
[2020-09-20] MEDS: Melatonin 3 MG TAB PO SCH (20:45)
[2020-09-21] MEDS: Acetaminophen 325 MG TAB PO PRN ×2 (05:40→21:03)
[2020-09-21] MEDS: Mometasone 100 MCG/Formoterol 5 MCG 120 PUFF INHALER INH SCH ×2 (07:39→19:26)
[2020-09-21] MEDS: Multivit, Therapeutic 1 TAB PO SCH (08:33)
[2020-09-21] MEDS: Zinc Sulfate 220 MG CAP PO SCH (08:33)
[2020-09-21] MEDS: Clopidogrel Bisulfate 75 MG TAB PO SCH (08:34)
[2020-09-21] MEDS: Topiramate 25 MG TAB PO SCH (08:34)
[2020-09-21] MEDS: Atorvastatin Calcium 20 MG TAB PO SCH (21:02)
[2020-09-21] MEDS: Melatonin 3 MG TAB PO SCH (21:03)
[2020-09-21] MEDS: Amitriptyline HCl 25 MG TAB PO SCH (21:03)
[2020-09-22] MEDS: Mometasone 100 MCG/Formoterol 5 MCG 120 PUFF INHALER INH SCH (07:27)
[2020-09-22 08:31] VITALS: BP 129/70; TEMP 98.3
[2020-09-22] MEDS: Topiramate 25 MG TAB PO SCH (08:41)
[2020-09-22] MEDS: Clopidogrel Bisulfate 75 MG TAB PO SCH (08:41)
[2020-09-22] MEDS: Zinc Sulfate 220 MG CAP PO SCH (08:41)
[2020-09-22] MEDS: Multivit, Therapeutic 1 TAB PO SCH (08:41)
== END 2020-09-22 12:20 | disposition home health service (06) | DRG 563 ==
LOC: ERS 08:14 → 2SW 10:18 → OBSVTOIN 09-16 15:22
PROVIDERS: ADMIT Internal Medicine; ATTEND Internal Medicine
DX: S82.844A Nondisplaced bimalleolar fracture of right lower leg, initial encounter for closed fracture (principal); E87.1 Hypo-osmolality and hyponatremia; E78.00 Pure hypercholesterolemia, unspecified; G43.909 Migraine, unspecified, not intractable, without status migrainosus; J45.20 Mild intermittent asthma, uncomplicated; N18.2 Chronic kidney disease, stage 2 (mild); I95.1 Orthostatic hypotension; W06.XXXA Fall from bed, initial encounter; E78.5 Hyperlipidemia, unspecified; Y92.003 Bedroom of unspecified non-institutional (private) residence as the place of occurrence of the external cause; Z79.51 Long term (current) use of inhaled steroids; Z86.19 Personal history of other infectious and parasitic diseases; Z79.899 Other long term (current) drug therapy; Z88.8 Allergy status to other drugs, medicaments and biological substances; Z79.02 Long term (current) use of antithrombotics/antiplatelets; Z86.73 Personal history of transient ischemic attack (TIA), and cerebral infarction without residual deficits
CPT/HCPCS: 29515; 36415; 36416; 70450; 71045; 80048; 80053; 81003; 81015; 82533; 83735; 83880; 84443; 84484; 85025; 93005; 94664; G0378; J0360; J2405

== ENCOUNTER 2020-11-24 16:37 | Inpatient (IN) | payer MEDICARE, BC ==
[2020-11-24 18:50] LABS: #Monocytes 0.5 thou/uL (0.11-0.59); %Basophils 0.6 % (0.0-1.0); %Lymphocytes 13.6 % (21.0-51.0); %Neutrophils 79.7 % (42.0-75.0); Hemoglobin 11.1 g/dL (12.0-16.0); Mean Corpuscular HGB CONC 31.3 g/dL (32.0-36.0); Mean Corpuscular Hemoglobin 28.4 pg (27.0-31.0); Mean Corpuscular Volume 90.6 fL (78.0-98.0); Mean Platelet Volume 6.8 fL (7.4-10.4); Platelet Count 326 thou/uL (130-400); RBC Distribution Width 12.5 % (11.5-14.5); White Blood Cell (WBC) Count 7.6 thou/uL (4.8-10.8)
[2020-11-24] MEDS ORDERED: Ondansetron ODT 4 MG TAB ONE (18:54)
[2020-11-24 19:11] LABS: ALT (SGPT) 46 U/L (8-55); AST (SGOT) 38 U/L (5-34); Albumin 4.5 g/dL (3.4-4.8); Alkaline Phosphatase 197 U/L (40-110); Anion Gap 13 mmol/L (10-20); BUN (Urea Nitrogen) 12 mg/dL (9.8-20.1); Bilirubin, Total 0.8 mg/dL (0.2-1.2); Calc. Creatinine Clearance 0 mL/min (70-130); Calcium 9.3 mg/dL (7.8-10.44); Carbon Dioxide 23 mmol/L (23-31); Chloride 106 mmol/L (98-107); Globulin 2.7 g/dL (2.4-3.5); Glucose 126 mg/dL (83-110); Lipase 32 U/L (8-78); Potassium 4.1 mmol/L (3.5-5.1); Protein, Total 7.2 g/dL (5.8-8.1); Sodium 138 mmol/L (136-145)
[2020-11-24] MEDS ORDERED: Meclizine HCl 25 MG TAB ONE (20:16)
[2020-11-24] MEDS ORDERED: Ondansetron PF 4 MG/2 ML Vial ONE (20:18)
[2020-11-24 20:57] LABS: Bilirubin Negative (Negative); Blood, Urine Negative (Negative); Clarity Hazy (Clear); Glucose, Urine (Dipstick) Normal (Negative); Ketone, Urine Negative (Negative); Leukocyte Negative Leu/uL (Negative); Nitrite Negative (Negative); Protein, Urine (Dipstick) 20 mg/dL (Neg-Trace); Specific Gravity, Urine 1.016 (1.002-1.036); Urobilinogen Normal mg/dL (Less than 2); pH, Urine 7.5 (5.0-9.0)
[2020-11-25 01:38] LABS: SARS-CoV-2 NAA Rapid Test Not Detected (NotDetected)
[2020-11-25] MEDS ORDERED: Labetalol HCl 100 MG/20 ML VIAL SLOW IVP PRN (04:40)
[2020-11-25] MEDS ORDERED: Ondansetron ODT 4 MG TAB PO PRN (04:40)
[2020-11-25] MEDS ORDERED: Acetaminophen 650 MG Suppository PR PRN (04:40)
[2020-11-25] MEDS ORDERED: Ondansetron PF 4 MG/2 ML Vial IVP PRN (04:40)
[2020-11-25] MEDS ORDERED: hydrALAZINE 20 MG/ML VIAL SLOW IVP PRN (04:40)
[2020-11-25] MEDS ORDERED: Acetaminophen 325 MG TAB PO PRN (04:40)
[2020-11-25] MEDS ORDERED: Clopidogrel Bisulfate 75 MG TAB PO SCH (05:00)
[2020-11-25] MEDS ORDERED: Clopidogrel Bisulfate 75 MG TAB ONE (06:16)
[2020-11-25] MEDS: Enoxaparin Sodium 40 MG/0.4 ML SYRINGE SC SCH (08:13)
[2020-11-25] MEDS ORDERED: Enoxaparin Sodium 40 MG/0.4 ML SYRINGE ONE (08:14)
[2020-11-25] MEDS ORDERED: Iopamidol-370 76% 500 ML 1 ML ONE (14:40)
[2020-11-25 18:18] VITALS: BMI 21.5
[2020-11-25] MEDS ORDERED: Atorvastatin Calcium 40 MG TAB PO SCH (21:00)
[2020-11-25] MEDS ORDERED: Topiramate 25 MG TAB PO SCH (22:00)
[2020-11-26 05:32] LABS: #Basophils 0.1 thou/uL (0.0-0.2); #Lymphocytes 1.6 thou/uL (1.20-3.40); #Monocytes 0.8 thou/uL (0.11-0.59); #Neutrophils 3.7 thou/uL (1.40-6.50); %Basophils 1.1 % (0.0-1.0); %Eosinophils 0.1 % (0.0-10.0); %Lymphocytes 25.8 % (21.0-51.0); %Monocytes 12.9 % (0.0-10.0); %Neutrophils 60.1 % (42.0-75.0); Hemoglobin 11.5 g/dL (12.0-16.0); Mean Corpuscular HGB CONC 32.8 g/dL (32.0-36.0); Mean Corpuscular Hemoglobin 29.8 pg (27.0-31.0); Mean Corpuscular Volume 90.9 fL (78.0-98.0); Platelet Count 300 thou/uL (130-400); RBC Distribution Width 12.4 % (11.5-14.5); Red Blood Cell (RBC) Count 3.85 mill/uL (4.20-5.40); White Blood Cell (WBC) Count 6.1 thou/uL (4.8-10.8)
[2020-11-26 06:04] LABS: Anion Gap 10 mmol/L (10-20); BUN (Urea Nitrogen) 19 mg/dL (9.8-20.1); Calc. Creatinine Clearance 43 mL/min (70-130); Carbon Dioxide 22 mmol/L (23-31); Cardiac Risk 5.1 (Less than 4.5); Chloride 108 mmol/L (98-107); Cholesterol 249 mg/dl (< 200 Desired); Glucose 90 mg/dL (83-110); HDL Cholesterol 49 mg/dL (>60 Neg Risk); LDL Cholesterol, Calculated 176 mg/dL; Potassium 3.5 mmol/L (3.5-5.1); Sodium 136 mmol/L (136-145); Triglycerides 121 mg/dL (Less than 150)
[2020-11-26] MEDS ORDERED: Clopidogrel Bisulfate 75 MG TAB PO SCH (09:00)
[2020-11-26] MEDS: Enoxaparin Sodium 40 MG/0.4 ML SYRINGE SC SCH (09:44)
[2020-11-26 15:57] VITALS: BP 173/77; TEMP 97.9
[2020-11-26] MEDS ORDERED: Topiramate 25 MG TAB PO SCH (21:00)
== END 2020-11-26 16:45 | disposition home or self-care (01) | DRG 66 ==
LOC: ERS 16:37 → ERHOLD 22:57 → 2SE 11-25 17:59 → OBSVTOIN 11-25 23:35
PROVIDERS: ADMIT Student in an Organized Health Care Education/Training Program; ATTEND Hospitalist
DX: I63.81 Other cerebral infarction due to occlusion or stenosis of small artery (principal); R29.700 NIHSS score 0; G43.909 Migraine, unspecified, not intractable, without status migrainosus; E78.5 Hyperlipidemia, unspecified; Z20.822 Contact with and (suspected) exposure to COVID-19; E78.00 Pure hypercholesterolemia, unspecified; I10 Essential (primary) hypertension; J45.909 Unspecified asthma, uncomplicated; Z90.5 Acquired absence of kidney; Z91.81 History of falling; Z88.8 Allergy status to other drugs, medicaments and biological substances; Z79.01 Long term (current) use of anticoagulants; Z79.51 Long term (current) use of inhaled steroids; Z79.899 Other long term (current) drug therapy
CPT/HCPCS: 0240U; 36415; 70450; 70496; 70498; 70551; 71045; 80048; 80053; 80061; 81003; 83690; 84484; 85025; 87086; 93005; 96372; 96374; G0378; J1650; J2405; Q0162; Q9967

== ENCOUNTER 2020-12-24 09:11 | Observation (INO) | payer MEDICARE, BC ==
[~2020-12-24 09:11] MED LIST: Iopamidol-370 76% 500 ML 1 ML ONE
[2020-12-24 09:54] LABS: #Basophils 0.1 thou/uL (0.0-0.2); #Monocytes 0.6 thou/uL (0.11-0.59); %Basophils 1.2 % (0.0-1.0); %Eosinophils 0.1 % (0.0-10.0); %Lymphocytes 16.8 % (21.0-51.0); %Monocytes 10.8 % (0.0-10.0); %Neutrophils 71.2 % (42.0-75.0); Hemoglobin 9.9 g/dL (12.0-16.0); Mean Corpuscular HGB CONC 34.4 g/dL (32.0-36.0); Mean Corpuscular Hemoglobin 29.6 pg (27.0-31.0); Mean Corpuscular Volume 86.1 fL (78.0-98.0); Mean Platelet Volume 6.6 fL (7.4-10.4); Platelet Count 303 thou/uL (130-400); RBC Distribution Width 12.6 % (11.5-14.5); Red Blood Cell (RBC) Count 3.34 mill/uL (4.20-5.40); White Blood Cell (WBC) Count 5.6 thou/uL (4.8-10.8)
[2020-12-24 10:03] LABS: Prothrombin Time 12.7 sec (12.0-14.7)
[2020-12-24 10:04] LABS: PTT 31.1 sec (22.9-36.1)
[2020-12-24 10:17] LABS: ALT (SGPT) 21 U/L (8-55); AST (SGOT) 21 U/L (5-34); Albumin 3.7 g/dL (3.4-4.8); Alkaline Phosphatase 130 U/L (40-110); Anion Gap 11 mmol/L (10-20); BUN (Urea Nitrogen) 14 mg/dL (9.8-20.1); Bilirubin, Total 0.5 mg/dL (0.2-1.2); Calc. Creatinine Clearance 0 mL/min (70-130); Calcium 8.7 mg/dL (7.8-10.44); Carbon Dioxide 23 mmol/L (23-31); Chloride 100 mmol/L (98-107); Globulin 2.5 g/dL (2.4-3.5); Glucose 100 mg/dL (83-110); Potassium 3.9 mmol/L (3.5-5.1); Protein, Total 6.2 g/dL (5.8-8.1); Sodium 130 mmol/L (136-145)
[2020-12-24 11:32] LABS: SARS-CoV-2 NAA Rapid Test Not Detected (NotDetected)
[2020-12-24] MEDS ORDERED: Acetaminophen 325 MG TAB PO PRN (13:31)
[2020-12-24] MEDS ORDERED: Ondansetron ODT 4 MG TAB PO PRN (13:31)
[2020-12-24 14:33] LABS: Magnesium 2.3 mg/dL (1.6-2.6)
[2020-12-24 16:18] VITALS: BMI 20.5
[2020-12-24] MEDS ORDERED: hydrALAZINE 20 MG/ML VIAL SLOW IVP PRN (17:52)
[2020-12-24 18:09] LABS: Bacteria/HPF None Seen HPF (None Seen); Bilirubin Negative (Negative); Blood, Urine Negative (Negative); Clarity Clear (Clear); Glucose, Urine (Dipstick) Normal (Negative); Ketone, Urine Negative (Negative); Leukocyte 25 Leu/uL (Negative); Nitrite Negative (Negative); Protein, Urine (Dipstick) Negative (Neg-Trace); RBC/HPF 0-3 HPF (0-3); Specific Gravity, Urine 1.011 (1.002-1.036); Squamous Epithelial None Seen HPF (0-3); Urobilinogen Normal mg/dL (Less than 2); WBC/HPF 0-3 HPF (0-3); pH, Urine 7.5 (5.0-9.0)
[2020-12-24] MEDS ORDERED: Topiramate 25 MG TAB PO SCH (21:00)
[2020-12-25 05:04] LABS: #Lymphocytes 1.1 thou/uL (1.20-3.40); #Monocytes 0.6 thou/uL (0.11-0.59); #Neutrophils 3.8 thou/uL (1.40-6.50); %Basophils 0.8 % (0.0-1.0); %Eosinophils 0.1 % (0.0-10.0); %Lymphocytes 19.6 % (21.0-51.0); %Monocytes 11.4 % (0.0-10.0); %Neutrophils 68.1 % (42.0-75.0); Hemoglobin 10.6 g/dL (12.0-16.0); Mean Corpuscular HGB CONC 33.6 g/dL (32.0-36.0); Mean Corpuscular Hemoglobin 28.8 pg (27.0-31.0); Mean Corpuscular Volume 85.8 fL (78.0-98.0); Mean Platelet Volume 6.5 fL (7.4-10.4); Platelet Count 285 thou/uL (130-400); RBC Distribution Width 12.5 % (11.5-14.5); Red Blood Cell (RBC) Count 3.66 mill/uL (4.20-5.40); White Blood Cell (WBC) Count 5.6 thou/uL (4.8-10.8)
[2020-12-25 05:33] LABS: Iron 57 ug/dL (50-170); Iron Binding Capacity, Total 409 mcg/dL (265-497)
[2020-12-25 05:34] LABS: Anion Gap 8 mmol/L (10-20); BUN (Urea Nitrogen) 14 mg/dL (9.8-20.1); Calc. Creatinine Clearance 47 mL/min (70-130); Carbon Dioxide 22 mmol/L (23-31); Cardiac Risk 4.5 (Less than 4.5); Chloride 105 mmol/L (98-107); Cholesterol 232 mg/dl (< 200 Desired); Glucose 95 mg/dL (83-110); HDL Cholesterol 51 mg/dL (>60 Neg Risk); Iron 56 ug/dL (50-170); Iron Binding Capacity, Total 411 mcg/dL (265-497); LDL Cholesterol, Calculated 160 mg/dL; Potassium 3.9 mmol/L (3.5-5.1); Sodium 131 mmol/L (136-145); Triglycerides 107 mg/dL (Less than 150)
[2020-12-25 05:56] LABS: Ferritin 10.59 ng/mL (10-291)
[2020-12-25] MEDS ORDERED: Clopidogrel Bisulfate 75 MG TAB PO SCH (09:00)
[2020-12-25 11:52] VITALS: TEMP 97.5
[2020-12-25 13:30] VITALS: BP 160/81
== END 2020-12-25 13:58 | disposition home or self-care (01) ==
LOC: ERS 09:11 → ERHOLD 10:06 → 3SE 15:23
PROVIDERS: ADMIT Family Medicine; ATTEND Family Medicine
DX: I63.89 Other cerebral infarction (principal); R29.810 Facial weakness; R47.1 Dysarthria and anarthria; R47.01 Aphasia; R29.700 NIHSS score 0; E87.1 Hypo-osmolality and hyponatremia; D64.9 Anemia, unspecified; I10 Essential (primary) hypertension; I08.1 Rheumatic disorders of both mitral and tricuspid valves; E78.5 Hyperlipidemia, unspecified; R74.01 Elevation of levels of liver transaminase levels; G43.909 Migraine, unspecified, not intractable, without status migrainosus; J45.909 Unspecified asthma, uncomplicated; Z20.822 Contact with and (suspected) exposure to COVID-19; Z86.73 Personal history of transient ischemic attack (TIA), and cerebral infarction without residual deficits; Z88.6 Allergy status to analgesic agent; Z88.8 Allergy status to other drugs, medicaments and biological substances; Z79.51 Long term (current) use of inhaled steroids; Z79.02 Long term (current) use of antithrombotics/antiplatelets; Z79.899 Other long term (current) drug therapy
CPT/HCPCS: 70450; 70496; 70498; 70551; 80048; 80061; 81001; 82607; 82728; 82746; 82962; 83540; 83550; 83735; 85025; 85610; 85730; 93005; 97116; 97139 ×3; 99285; U0002; 36415; 36416; 80053; 84443; G0378; Q9967

== ENCOUNTER 2021-04-09 15:27 | Inpatient (IN) | payer MEDICARE, BC ==
[2021-04-09 15:49] LABS: #Eosinphils 0.1 thou/uL (0.0-0.7); #Lymphocytes 1.5 thou/uL (1.20-3.40); #Monocytes 0.8 thou/uL (0.11-0.59); #Neutrophils 4.4 thou/uL (1.40-6.50); %Basophils 0.6 % (0.0-1.0); %Lymphocytes 22.1 % (21.0-51.0); %Monocytes 11.8 % (0.0-10.0); %Neutrophils 64.5 % (42.0-75.0); Hemoglobin 12.8 g/dL (12.0-16.0); Mean Corpuscular HGB CONC 34.9 g/dL (32.0-36.0); Mean Corpuscular Hemoglobin 31.2 pg (27.0-31.0); Mean Corpuscular Volume 89.5 fL (78.0-98.0); Mean Platelet Volume 6.7 fL (7.4-10.4); Platelet Count 268 thou/uL (130-400); RBC Distribution Width 15.7 % (11.5-14.5); Red Blood Cell (RBC) Count 4.09 mill/uL (4.20-5.40); White Blood Cell (WBC) Count 6.8 thou/uL (4.8-10.8)
[2021-04-09 16:09] LABS: ALT (SGPT) 20 U/L (8-55); AST (SGOT) 22 U/L (5-34); Albumin 4.2 g/dL (3.4-4.8); Alkaline Phosphatase 103 U/L (40-110); Anion Gap 14 mmol/L (10-20); BUN (Urea Nitrogen) 14 mg/dL (9.8-20.1); Bilirubin, Total 0.5 mg/dL (0.2-1.2); Calc. Creatinine Clearance 0 mL/min (70-130); Calcium 9.8 mg/dL (7.8-10.44); Carbon Dioxide 24 mmol/L (23-31); Chloride 102 mmol/L (98-107); Glucose 107 mg/dL (83-110); Protein, Total 7.2 g/dL (5.8-8.1); Sodium 136 mmol/L (136-145)
[2021-04-09] MEDS ORDERED: Lisinopril 10 MG TAB ONE (17:28)
[2021-04-09 17:49] LABS: Magnesium 2.2 mg/dL (1.6-2.6)
[2021-04-09] MEDS ORDERED: Albuterol Sulfate 2.5 mg/3 ml Neb NEB PRN (18:06)
[2021-04-09] MEDS ORDERED: Nitroglycerin 0.4 MG TAB (25 Tab Bottle) SL PRN (18:07)
[2021-04-09 19:36] LABS: Troponin I 0.062 ng/mL (< 0.028)
[2021-04-09 20:04] VITALS: BMI 20.6
[2021-04-09 21:45] LABS: SARS-CoV-2 NAA Rapid Test Not Detected (NotDetected)
[2021-04-09] MEDS: Sodium Chloride 0.9% 1,000 ML IV SCH (21:52)
[2021-04-09] MEDS: Atorvastatin Calcium 40 MG TAB PO SCH (21:53)
[2021-04-09] MEDS ORDERED: Fluticasone Propionate Nasal Spray 16 gm Bottle NASAL PRN (22:19)
[2021-04-09 22:24] LABS: Troponin I 0.085 ng/mL (< 0.028)
[2021-04-09] MEDS: Labetalol HCl 100 MG/20 ML VIAL SLOW IVP PRN (22:24)
[2021-04-09] MEDS ORDERED: hydrALAZINE 20 MG/ML VIAL SLOW IVP PRN (23:39)
[2021-04-10 01:14] LABS: Bacteria/HPF None Seen HPF (None Seen); Bilirubin Negative (Negative); Blood, Urine Negative (Negative); Clarity Clear (Clear); Glucose, Urine (Dipstick) Normal (Negative); Ketone, Urine Negative (Negative); Leukocyte Negative Leu/uL (Negative); Nitrite Negative (Negative); Protein, Urine (Dipstick) Negative (Neg-Trace); RBC/HPF 0-3 HPF (0-3); Specific Gravity, Urine 1.006 (1.002-1.036); Squamous Epithelial 0-3 HPF (0-3); Urobilinogen Normal mg/dL (Less than 2); WBC/HPF 0-3 HPF (0-3); pH, Urine 7.5 (5.0-9.0)
[2021-04-10] MEDS: Ondansetron ODT 4 MG TAB PO PRN ×2 (01:15→08:08)
[2021-04-10 01:16] LABS: Urine Culture Reflex No No
[2021-04-10] MEDS: Ondansetron PF 4 MG/2 ML Vial IVP PRN (01:54)
[2021-04-10] MEDS ORDERED: Calcium Carbonate 500 MG ChewTAB PO PRN (03:45)
[2021-04-10 05:18] LABS: #Lymphocytes 0.9 thou/uL (1.20-3.40); #Monocytes 0.5 thou/uL (0.11-0.59); #Neutrophils 9.3 thou/uL (1.40-6.50); %Basophils 0.4 % (0.0-1.0); %Eosinophils 0.2 % (0.0-10.0); %Lymphocytes 8.7 % (21.0-51.0); %Monocytes 4.9 % (0.0-10.0); %Neutrophils 85.8 % (42.0-75.0); Hemoglobin 12.6 g/dL (12.0-16.0); Mean Corpuscular HGB CONC 32.1 g/dL (32.0-36.0); Mean Corpuscular Hemoglobin 28.7 pg (27.0-31.0); Mean Corpuscular Volume 89.2 fL (78.0-98.0); Mean Platelet Volume 6.7 fL (7.4-10.4); Platelet Count 285 thou/uL (130-400); RBC Distribution Width 15.8 % (11.5-14.5); White Blood Cell (WBC) Count 10.9 thou/uL (4.8-10.8)
[2021-04-10 05:36] LABS: Anion Gap 13 mmol/L (10-20); BUN (Urea Nitrogen) 11 mg/dL (9.8-20.1); Calc. Creatinine Clearance 48 mL/min (70-130); Carbon Dioxide 21 mmol/L (23-31); Chloride 106 mmol/L (98-107); Potassium 4.1 mmol/L (3.5-5.1); Sodium 136 mmol/L (136-145)
[2021-04-10 05:37] LABS: Calcium 9.4 mg/dL (7.8-10.44); Glucose 138 mg/dL (83-110)
[2021-04-10 05:43] LABS: Troponin I 0.061 ng/mL (< 0.028)
[2021-04-10] MEDS: Clopidogrel Bisulfate 75 MG TAB PO SCH (08:08)
[2021-04-10] MEDS: Zinc Sulfate 220 MG CAP PO SCH (08:08)
[2021-04-10] MEDS: Labetalol HCl 100 MG/20 ML VIAL SLOW IVP PRN (08:10)
[2021-04-10] MEDS: Promethazine HCl 12.5 MG in Sodium Chloride 0.9% 50 ML IVPB PRN (08:57)
[2021-04-10] MEDS: Sodium Chloride 0.9% 1,000 ML IV SCH (14:25)
[2021-04-10] MEDS: Acetaminophen 325 MG TAB PO PRN (14:53)
[2021-04-10] MEDS: Atorvastatin Calcium 40 MG TAB PO SCH (21:31)
[2021-04-10] MEDS: Melatonin 3 MG TAB PO SCH (21:59)
[2021-04-11] MEDS: Acetaminophen 325 MG TAB PO PRN ×2 (00:18→09:16)
[2021-04-11 04:58] LABS: #Basophils 0.1 thou/uL (0.0-0.2); #Lymphocytes 1.1 thou/uL (1.20-3.40); #Monocytes 0.7 thou/uL (0.11-0.59); #Neutrophils 4.7 thou/uL (1.40-6.50); %Basophils 0.8 % (0.0-1.0); %Eosinophils 0.6 % (0.0-10.0); %Lymphocytes 16.5 % (21.0-51.0); Hemoglobin 11.6 g/dL (12.0-16.0); Mean Corpuscular Hemoglobin 30.1 pg (27.0-31.0); Mean Corpuscular Volume 88.7 fL (78.0-98.0); Mean Platelet Volume 6.9 fL (7.4-10.4); Platelet Count 257 thou/uL (130-400); RBC Distribution Width 15.9 % (11.5-14.5); Red Blood Cell (RBC) Count 3.83 mill/uL (4.20-5.40); White Blood Cell (WBC) Count 6.6 thou/uL (4.8-10.8)
[2021-04-11] MEDS: Sodium Chloride 0.9% 1,000 ML IV SCH ×2 (05:14)
[2021-04-11 05:18] LABS: Anion Gap 11 mmol/L (10-20); BUN (Urea Nitrogen) 13 mg/dL (9.8-20.1); Calc. Creatinine Clearance 50 mL/min (70-130); Calcium 8.4 mg/dL (7.8-10.44); Carbon Dioxide 20 mmol/L (23-31); Chloride 109 mmol/L (98-107); Glucose 94 mg/dL (83-110); Potassium 3.7 mmol/L (3.5-5.1); Sodium 136 mmol/L (136-145)
[2021-04-11 05:26] LABS: Troponin I 0.039 ng/mL (< 0.028)
[2021-04-11] MEDS ORDERED: ceFAZolin 2 GM/DEX 5% 100 ML BAG ONE (06:36)
[2021-04-11] MEDS ORDERED: Gentamicin 80 MG/2 ML VIAL ONE (06:36)
[2021-04-11] MEDS ORDERED: CEFAZOLIN 1 GM VIAL ONE (06:37)
[2021-04-11] MEDS ORDERED: Lidocaine 1% (PF) 30 ML VIAL ONE (06:59)
[2021-04-11] MEDS ORDERED: Midazolam HCl 2 mg/2 ml Vial ONE ×3 (07:22→15:35)
[2021-04-11] MEDS ORDERED: Fentanyl 100 MCG/2 ML VIAL ONE ×2 (07:23→15:35)
[2021-04-11] MEDS: Zinc Sulfate 220 MG CAP PO SCH (09:16)
[2021-04-11] MEDS: Clopidogrel Bisulfate 75 MG TAB PO SCH (09:54)
[2021-04-11] MEDS ORDERED: hydrALAZINE 20 MG/ML VIAL SLOW IVP PRN (11:55)
[2021-04-11] MEDS: Ondansetron ODT 4 MG TAB PO PRN (12:03)
[2021-04-11] MEDS: Morphine 4 MG/ML VIAL SLOW IVP PRN ×3 (12:04→23:09)
[2021-04-11 15:29] LABS: #Basophils 0.1 thou/uL (0.0-0.2); #Lymphocytes 1.1 thou/uL (1.20-3.40); #Neutrophils 10.9 thou/uL (1.40-6.50); %Basophils 0.4 % (0.0-1.0); %Eosinophils 0.2 % (0.0-10.0); %Lymphocytes 8.6 % (21.0-51.0); %Monocytes 7.3 % (0.0-10.0); %Neutrophils 83.5 % (42.0-75.0); Hemoglobin 10.9 g/dL (12.0-16.0); Mean Corpuscular HGB CONC 32.9 g/dL (32.0-36.0); Mean Corpuscular Hemoglobin 29.8 pg (27.0-31.0); Mean Corpuscular Volume 90.5 fL (78.0-98.0); Mean Platelet Volume 6.8 fL (7.4-10.4); Platelet Count 268 thou/uL (130-400); RBC Distribution Width 15.6 % (11.5-14.5); Red Blood Cell (RBC) Count 3.66 mill/uL (4.20-5.40); White Blood Cell (WBC) Count 13.1 thou/uL (4.8-10.8)
[2021-04-11 15:42] LABS: Prothrombin Time 13.7 sec (12.0-14.7)
[2021-04-11 15:49] LABS: Anion Gap 12 mmol/L (10-20); BUN (Urea Nitrogen) 13 mg/dL (9.8-20.1); Calc. Creatinine Clearance 50 mL/min (70-130); Calcium 7.9 mg/dL (7.8-10.44); Carbon Dioxide 19 mmol/L (23-31); Chloride 107 mmol/L (98-107); Glucose 109 mg/dL (83-110); Potassium 3.8 mmol/L (3.5-5.1); Sodium 134 mmol/L (136-145)
[2021-04-11 15:53] LABS: Troponin I 0.061 ng/mL (< 0.028)
[2021-04-11] MEDS: Ondansetron PF 4 MG/2 ML Vial IVP PRN (17:52)
[2021-04-11] MEDS: Atorvastatin Calcium 40 MG TAB PO SCH (20:04)
[2021-04-11] MEDS: HYDROcodone/Acetaminophen 7.5/325 mg Tablet PO PRN (20:04)
[2021-04-11] MEDS: Melatonin 3 MG TAB PO SCH (20:05)
[2021-04-12] MEDS: Morphine 4 MG/ML VIAL SLOW IVP PRN ×2 (01:53→06:52)
[2021-04-12 04:22] LABS: #Eosinphils 0.2 thou/uL (0.0-0.7); #Neutrophils 7.6 thou/uL (1.40-6.50); %Basophils 0.3 % (0.0-1.0); %Eosinophils 1.7 % (0.0-10.0); %Lymphocytes 10.1 % (21.0-51.0); %Monocytes 10.3 % (0.0-10.0); %Neutrophils 77.7 % (42.0-75.0); Hemoglobin 10.7 g/dL (12.0-16.0); Mean Corpuscular HGB CONC 33.2 g/dL (32.0-36.0); Mean Corpuscular Hemoglobin 30.9 pg (27.0-31.0); Mean Corpuscular Volume 93.1 fL (78.0-98.0); Mean Platelet Volume 7.2 fL (7.4-10.4); Platelet Count 223 thou/uL (130-400); RBC Distribution Width 15.8 % (11.5-14.5); Red Blood Cell (RBC) Count 3.45 mill/uL (4.20-5.40); White Blood Cell (WBC) Count 9.8 thou/uL (4.8-10.8)
[2021-04-12 04:29] LABS: Anion Gap 14 mmol/L (10-20); BUN (Urea Nitrogen) 18 mg/dL (9.8-20.1); Calc. Creatinine Clearance 50 mL/min (70-130); Calcium 8.4 mg/dL (7.8-10.44); Carbon Dioxide 18 mmol/L (23-31); Chloride 107 mmol/L (98-107); Glucose 82 mg/dL (83-110); Potassium 4.2 mmol/L (3.5-5.1); Sodium 135 mmol/L (136-145)
[2021-04-12 04:33] LABS: Troponin I 0.103 ng/mL (< 0.028)
[2021-04-12] MEDS: HYDROcodone/Acetaminophen 7.5/325 mg Tablet PO PRN ×2 (07:59→17:28)
[2021-04-12] MEDS: Clopidogrel Bisulfate 75 MG TAB PO SCH (07:59)
[2021-04-12] MEDS: Ondansetron ODT 4 MG TAB PO PRN ×2 (07:59→17:31)
[2021-04-12] MEDS: Zinc Sulfate 220 MG CAP PO SCH (08:00)
[2021-04-12] MEDS: Ondansetron PF 4 MG/2 ML Vial IVP PRN (09:55)
[2021-04-12] MEDS ORDERED: Labetalol HCl 100 MG/20 ML VIAL SLOW IVP PRN (12:57)
[2021-04-12] MEDS: Atorvastatin Calcium 40 MG TAB PO SCH (21:37)
[2021-04-12] MEDS: Acetaminophen 325 MG TAB PO PRN (21:37)
[2021-04-12] MEDS: Melatonin 3 MG TAB PO SCH (21:37)
[2021-04-13] MEDS: Ondansetron ODT 4 MG TAB PO PRN ×3 (04:00→18:06)
[2021-04-13] MEDS: HYDROcodone/Acetaminophen 7.5/325 mg Tablet PO PRN ×2 (04:02→18:06)
[2021-04-13 05:21] LABS: #Eosinphils 0.1 thou/uL (0.0-0.7); #Lymphocytes 0.9 thou/uL (1.20-3.40); #Monocytes 1.2 thou/uL (0.11-0.59); #Neutrophils 7.4 thou/uL (1.40-6.50); %Basophils 0.5 % (0.0-1.0); %Eosinophils 0.6 % (0.0-10.0); %Monocytes 12.4 % (0.0-10.0); %Neutrophils 77.5 % (42.0-75.0); Hemoglobin 9.9 g/dL (12.0-16.0); Mean Corpuscular HGB CONC 33.9 g/dL (32.0-36.0); Mean Corpuscular Hemoglobin 30.5 pg (27.0-31.0); Mean Corpuscular Volume 89.8 fL (78.0-98.0); Mean Platelet Volume 6.8 fL (7.4-10.4); Platelet Count 211 thou/uL (130-400); RBC Distribution Width 15.6 % (11.5-14.5); Red Blood Cell (RBC) Count 3.26 mill/uL (4.20-5.40); White Blood Cell (WBC) Count 9.5 thou/uL (4.8-10.8)
[2021-04-13 05:42] LABS: Anion Gap 8 mmol/L (10-20); BUN (Urea Nitrogen) 21 mg/dL (9.8-20.1); Calc. Creatinine Clearance 52 mL/min (70-130); Calcium 8.4 mg/dL (7.8-10.44); Carbon Dioxide 25 mmol/L (23-31); Chloride 103 mmol/L (98-107); Glucose 135 mg/dL (83-110); Potassium 3.6 mmol/L (3.5-5.1); Sodium 132 mmol/L (136-145)
[2021-04-13] MEDS: Clopidogrel Bisulfate 75 MG TAB PO SCH (09:49)
[2021-04-13] MEDS: Zinc Sulfate 220 MG CAP PO SCH (09:49)
[2021-04-13] MEDS ORDERED: Acetaminophen/Codeine 30-300mg Tablet PO PRN (20:22)
[2021-04-13] MEDS: Melatonin 3 MG TAB PO SCH (21:09)
[2021-04-13] MEDS: Atorvastatin Calcium 40 MG TAB PO SCH (21:09)
[2021-04-14] MEDS: Ondansetron PF 4 MG/2 ML Vial IVP PRN (03:40)
[2021-04-14 05:03] LABS: #Eosinphils 0.1 thou/uL (0.0-0.7); #Lymphocytes 1.1 thou/uL (1.20-3.40); #Monocytes 0.9 thou/uL (0.11-0.59); #Neutrophils 5.3 thou/uL (1.40-6.50); %Basophils 0.3 % (0.0-1.0); %Eosinophils 1.6 % (0.0-10.0); %Lymphocytes 15.1 % (21.0-51.0); %Monocytes 12.4 % (0.0-10.0); %Neutrophils 70.6 % (42.0-75.0); Hemoglobin 9.9 g/dL (12.0-16.0); Mean Corpuscular HGB CONC 34.2 g/dL (32.0-36.0); Mean Corpuscular Volume 90.6 fL (78.0-98.0); Mean Platelet Volume 6.7 fL (7.4-10.4); Platelet Count 185 thou/uL (130-400); RBC Distribution Width 15.3 % (11.5-14.5); Red Blood Cell (RBC) Count 3.18 mill/uL (4.20-5.40); White Blood Cell (WBC) Count 7.5 thou/uL (4.8-10.8)
[2021-04-14 05:18] LABS: Anion Gap 10 mmol/L (10-20); BUN (Urea Nitrogen) 13 mg/dL (9.8-20.1); Calc. Creatinine Clearance 54 mL/min (70-130); Calcium 8.2 mg/dL (7.8-10.44); Carbon Dioxide 26 mmol/L (23-31); Chloride 103 mmol/L (98-107); Glucose 112 mg/dL (83-110); Potassium 3.5 mmol/L (3.5-5.1); Sodium 135 mmol/L (136-145)
[2021-04-14] MEDS: Morphine 4 MG/ML VIAL SLOW IVP PRN (06:18)
[2021-04-14] MEDS: Promethazine HCl 12.5 MG in Sodium Chloride 0.9% 50 ML IVPB PRN (10:19)
[2021-04-14] MEDS: Zinc Sulfate 220 MG CAP PO SCH (10:20)
[2021-04-14] MEDS: Clopidogrel Bisulfate 75 MG TAB PO SCH (10:20)
[2021-04-14] MEDS ORDERED: Lisinopril 10 MG TAB PO SCH (11:30)
[2021-04-14] MEDS: Melatonin 3 MG TAB PO SCH (20:17)
[2021-04-14] MEDS: Atorvastatin Calcium 40 MG TAB PO SCH (20:18)
[2021-04-15] MEDS: Zinc Sulfate 220 MG CAP PO SCH (08:58)
[2021-04-15] MEDS: Clopidogrel Bisulfate 75 MG TAB PO SCH (08:58)
[2021-04-15] MEDS ORDERED: Lisinopril 10 MG TAB PO SCH (09:00)
[2021-04-15 12:13] VITALS: TEMP 98
[2021-04-15 15:52] VITALS: BP 155/70
== END 2021-04-15 15:11 | disposition home or self-care (01) | DRG 243 ==
LOC: ERS 15:27 → 2SW 17:33 → OBSVTOIN 04-10 14:40 → CCU 04-11 15:24 → 2NO 04-12 15:09
PROVIDERS: ADMIT Internal Medicine; ATTEND Internal Medicine
PROC: 4A023FZ Measurement of Cardiac Rhythm, Percutaneous Approach (ICD-10-PCS; principal; 2021-04-11)
PROC: 0JH606Z Insertion of Pacemaker, Dual Chamber into Chest Subcutaneous Tissue and Fascia, Open Approach (ICD-10-PCS; 2021-04-11)
PROC: 02H63JZ Insertion of Pacemaker Lead into Right Atrium, Percutaneous Approach (ICD-10-PCS; 2021-04-11)
PROC: 02HK3JZ Insertion of Pacemaker Lead into Right Ventricle, Percutaneous Approach (ICD-10-PCS; 2021-04-11)
PROC: 4A0234Z Measurement of Cardiac Electrical Activity, Percutaneous Approach (ICD-10-PCS; 2021-04-11)
PROC: 0W9B30Z Drainage of Left Pleural Cavity with Drainage Device, Percutaneous Approach (ICD-10-PCS; 2021-04-11)
DX: I49.5 Sick sinus syndrome (principal); J93.9 Pneumothorax, unspecified; Z20.822 Contact with and (suspected) exposure to COVID-19; J93.82 Other air leak; G47.00 Insomnia, unspecified; I16.0 Hypertensive urgency; R79.89 Other specified abnormal findings of blood chemistry; E78.5 Hyperlipidemia, unspecified; I10 Essential (primary) hypertension; J45.909 Unspecified asthma, uncomplicated; E78.00 Pure hypercholesterolemia, unspecified; K21.9 Gastro-esophageal reflux disease without esophagitis; H91.90 Unspecified hearing loss, unspecified ear; I95.9 Hypotension, unspecified; Z90.49 Acquired absence of other specified parts of digestive tract; Z90.721 Acquired absence of ovaries, unilateral; Z86.73 Personal history of transient ischemic attack (TIA), and cerebral infarction without residual deficits; Z88.5 Allergy status to narcotic agent; Z88.8 Allergy status to other drugs, medicaments and biological substances; Z91.048 Other nonmedicinal substance allergy status; Z79.01 Long term (current) use of anticoagulants; Z79.51 Long term (current) use of inhaled steroids; Z79.899 Other long term (current) drug therapy
CPT/HCPCS: 0240U; 33208; 36415; 71045; 80048; 80053; 81001; 83735; 84484; 85025; 85610; 86850; 86900; 86901; 93005; 93010; 93306; 94760; 96374; 96375; 96376; 99152; 99153; C1785; C1898; G0378; J0360; J0690; J1580; J2001; J2250; J2270; J2405; J2550; J3010; J7050; Q0162

== ENCOUNTER 2021-04-17 17:42 | Emergency (ER) | payer MEDICARE, BC ==
[2021-04-17 20:19] LABS: Bilirubin Negative (Negative); Blood, Urine Negative (Negative); Clarity Clear (Clear); Glucose, Urine (Dipstick) Normal (Negative); Ketone, Urine Negative (Negative); Leukocyte Negative Leu/uL (Negative); Nitrite Negative (Negative); Protein, Urine (Dipstick) Negative (Neg-Trace); Urobilinogen Normal mg/dL (Less than 2)
[2021-04-17 20:37] LABS: ALT (SGPT) 18 U/L (8-55); AST (SGOT) 20 U/L (5-34); Albumin 3.7 g/dL (3.4-4.8); Alkaline Phosphatase 86 U/L (40-110); Anion Gap 12 mmol/L (10-20); BUN (Urea Nitrogen) 9 mg/dL (9.8-20.1); Bilirubin, Total 0.6 mg/dL (0.2-1.2); Calc. Creatinine Clearance 0 mL/min (70-130); Calcium 9.7 mg/dL (7.8-10.44); Carbon Dioxide 27 mmol/L (23-31); Chloride 104 mmol/L (98-107); Globulin 2.3 g/dL (2.4-3.5); Glucose 115 mg/dL (83-110); Sodium 139 mmol/L (136-145)
[2021-04-17 20:39] LABS: Hemoglobin 19.1 g/dL (12.0-16.0); Mean Corpuscular HGB CONC 34.5 g/dL (32.0-36.0); Mean Corpuscular Hemoglobin 31.6 pg (27.0-31.0); Mean Corpuscular Volume 91.5 fL (78.0-98.0); Mean Platelet Volume 7.3 fL (7.4-10.4); Platelet Count 90 thou/uL (130-400); RBC Distribution Width 15.9 % (11.5-14.5); Red Blood Cell (RBC) Count 6.05 mill/uL (4.20-5.40); White Blood Cell (WBC) Count 2.9 thou/uL (4.8-10.8)
[2021-04-17 20:59] LABS: CKMB 1.3 ng/mL (0-6.6)
[2021-04-17 21:03] LABS: #Eosinphils 0.1 thou/uL (0.0-0.7); #Lymphocytes 0.5 thou/uL (1.20-3.40); #Monocytes 0.2 thou/uL (0.11-0.59); #Neutrophils 2.1 thou/uL (1.40-6.50); %Basophils 0.6 % (0.0-1.0); %Eosinophils 2.7 % (0.0-10.0); %Lymphocytes 17.2 % (21.0-51.0); %Monocytes 6.9 % (0.0-10.0); %Neutrophils 72.5 % (42.0-75.0)
[2021-04-17 21:14] LABS: Anisocytosis SLIGHT = 6-15 cells (100X) (0-5/hpf); Burr Cells SLIGHT = 2-5 cells (100X) (0-1/hpf); Elliptocytes SLIGHT = 2-5 cells (100X) (0-1/hpf); MDiff Complete? YES; Platelet Morphology Comment Appears Adequate
[2021-04-18 12:34] LABS: SARS-CoV-2 PCR by NAA Not Detected (NotDetected)
== END 2021-04-17 23:04 | disposition home or self-care (01) ==
LOC: ERS 17:42
DX: R53.1 Weakness (principal); D72.819 Decreased white blood cell count, unspecified; E78.5 Hyperlipidemia, unspecified; I10 Essential (primary) hypertension; E78.00 Pure hypercholesterolemia, unspecified; G43.909 Migraine, unspecified, not intractable, without status migrainosus; Z20.822 Contact with and (suspected) exposure to COVID-19
CPT/HCPCS: 71045; 80053; 81003; 82553; 83880; 84484; 85025; 93005; 94760; 99285; U0003; U0005; 36415

== ENCOUNTER 2021-06-17 17:50 | Inpatient (IN) | payer MEDICARE, BC ==
[2021-06-17 18:36] LABS: #Eosinphils 0.2 thou/uL (0.0-0.7); #Lymphocytes 1.4 thou/uL (1.20-3.40); #Monocytes 0.7 thou/uL (0.11-0.59); #Neutrophils 4.9 thou/uL (1.40-6.50); %Basophils 0.6 % (0.0-1.0); %Eosinophils 2.1 % (0.0-10.0); %Lymphocytes 19.8 % (21.0-51.0); %Monocytes 9.6 % (0.0-10.0); %Neutrophils 67.9 % (42.0-75.0); Hemoglobin 10.3 g/dL (12.0-16.0); INR-International Normal Ratio 0.9; Mean Corpuscular HGB CONC 32.7 g/dL (32.0-36.0); Mean Corpuscular Hemoglobin 28.5 pg (27.0-31.0); Mean Corpuscular Volume 87.4 fL (78.0-98.0); Mean Platelet Volume 6.5 fL (7.4-10.4); PTT 29.8 sec (22.9-36.1); Platelet Count 283 thou/uL (130-400); Prothrombin Time 12.1 sec (12.0-14.7); RBC Distribution Width 13.9 % (11.5-14.5); Red Blood Cell (RBC) Count 3.61 mill/uL (4.20-5.40); White Blood Cell (WBC) Count 7.2 thou/uL (4.8-10.8)
[2021-06-17 18:49] LABS: ALT (SGPT) 25 U/L (8-55); AST (SGOT) 28 U/L (5-34); Albumin 4.2 g/dL (3.4-4.8); Alkaline Phosphatase 114 U/L (40-110); Anion Gap 16 mmol/L (10-20); BUN (Urea Nitrogen) 17 mg/dL (9.8-20.1); Bilirubin, Total 0.5 mg/dL (0.2-1.2); CK (CPK) 224 U/L (29-168); Calc. Creatinine Clearance 0 mL/min (70-130); Calcium 9.3 mg/dL (7.8-10.44); Carbon Dioxide 21 mmol/L (23-31); Chloride 101 mmol/L (98-107); Globulin 2.5 g/dL (2.4-3.5); Glucose 103 mg/dL (83-110); Potassium 4.2 mmol/L (3.5-5.1); Protein, Total 6.7 g/dL (5.8-8.1); Sodium 134 mmol/L (136-145)
[2021-06-17 21:17] LABS: Bilirubin Negative (Negative); Blood, Urine Negative (Negative); Clarity Clear (Clear); Glucose, Urine (Dipstick) Normal (Negative); Ketone, Urine Negative (Negative); Leukocyte Negative Leu/uL (Negative); Nitrite Negative (Negative); Protein, Urine (Dipstick) Negative (Neg-Trace); Specific Gravity, Urine 1.008 (1.002-1.036); Urobilinogen Normal mg/dL (Less than 2)
[2021-06-17] MEDS ORDERED: Ondansetron PF 4 MG/2 ML Vial IVP PRN (21:30)
[2021-06-17] MEDS ORDERED: Acetaminophen 325 MG TAB PO PRN (21:30)
[2021-06-17] MEDS ORDERED: Ondansetron ODT 4 MG TAB SL PRN (21:30)
[2021-06-17 23:44] VITALS: BMI 21.9
[2021-06-18] MEDS ORDERED: Albuterol Sulfate 2.5 mg/3 ml Neb NEB PRN ×2 (02:27→18:13)
[2021-06-18 04:54] LABS: #Basophils 0.1 thou/uL (0.0-0.2); #Eosinphils 0.1 thou/uL (0.0-0.7); #Monocytes 0.7 thou/uL (0.11-0.59); #Neutrophils 4.6 thou/uL (1.40-6.50); %Basophils 0.9 % (0.0-1.0); %Lymphocytes 15.2 % (21.0-51.0); %Monocytes 11.1 % (0.0-10.0); %Neutrophils 70.9 % (42.0-75.0); Hemoglobin 9.7 g/dL (12.0-16.0); Mean Corpuscular HGB CONC 32.7 g/dL (32.0-36.0); Mean Corpuscular Hemoglobin 28.6 pg (27.0-31.0); Mean Corpuscular Volume 87.4 fL (78.0-98.0); Mean Platelet Volume 6.5 fL (7.4-10.4); Platelet Count 251 thou/uL (130-400); RBC Distribution Width 13.8 % (11.5-14.5); White Blood Cell (WBC) Count 6.5 thou/uL (4.8-10.8)
[2021-06-18 05:32] LABS: Anion Gap 12 mmol/L (10-20); BUN (Urea Nitrogen) 16 mg/dL (9.8-20.1); Calc. Creatinine Clearance 52 mL/min (70-130); Calcium 9.6 mg/dL (7.8-10.44); Carbon Dioxide 25 mmol/L (23-31); Cardiac Risk 3.5 (Less than 4.5); Chloride 105 mmol/L (98-107); Cholesterol 156 mg/dl (< 200 Desired); Glucose 101 mg/dL (83-110); HDL Cholesterol 45 mg/dL (>60 Neg Risk); LDL Cholesterol, Calculated 91 mg/dL; Sodium 138 mmol/L (136-145); Triglycerides 100 mg/dL (Less than 150)
[2021-06-18] MEDS: Clopidogrel Bisulfate 75 MG TAB PO SCH (10:13)
[2021-06-18] MEDS: Enoxaparin Sodium 40 MG/0.4 ML SYRINGE SC SCH (10:14)
[2021-06-18] MEDS: Lisinopril 10 MG TAB PO SCH (13:50)
[2021-06-18] MEDS: Topiramate 25 MG TAB PO SCH (13:50)
[2021-06-18] MEDS: Ezetimibe 10 MG TAB PO SCH (13:50)
[2021-06-18 14:54] LABS: SARS-CoV-2 PCR by NAA Not Detected (NotDetected)
[2021-06-18] MEDS ORDERED: Acetaminophen/Codeine 30-300mg Tablet PO PRN (17:44)
[2021-06-18] MEDS: Mometasone 100 MCG/Formoterol 5 MCG 120 PUFF INHALER INH SCH (19:19)
[2021-06-18] MEDS: Atorvastatin Calcium 40 MG TAB PO SCH (20:46)
[2021-06-18] MEDS ORDERED: Amitriptyline HCl 25 MG TAB PO SCH (21:00)
[2021-06-18] MEDS: VIT K1 PO SCH (21:31)
[2021-06-18] MEDS: CALCIUM CARB PO SCH (21:31)
[2021-06-18] MEDS: VITAMIN D3 PO SCH (21:31)
[2021-06-19 05:12] LABS: #Basophils 0.1 thou/uL (0.0-0.2); #Eosinphils 0.1 thou/uL (0.0-0.7); #Lymphocytes 1.1 thou/uL (1.20-3.40); #Monocytes 0.7 thou/uL (0.11-0.59); #Neutrophils 3.7 thou/uL (1.40-6.50); %Basophils 0.9 % (0.0-1.0); %Eosinophils 2.6 % (0.0-10.0); %Lymphocytes 19.5 % (21.0-51.0); %Monocytes 11.6 % (0.0-10.0); %Neutrophils 65.4 % (42.0-75.0); Hemoglobin 10.2 g/dL (12.0-16.0); Mean Corpuscular HGB CONC 32.7 g/dL (32.0-36.0); Mean Corpuscular Hemoglobin 28.5 pg (27.0-31.0); Mean Corpuscular Volume 87.3 fL (78.0-98.0); Mean Platelet Volume 6.4 fL (7.4-10.4); Platelet Count 258 thou/uL (130-400); RBC Distribution Width 13.9 % (11.5-14.5); Red Blood Cell (RBC) Count 3.58 mill/uL (4.20-5.40); White Blood Cell (WBC) Count 5.7 thou/uL (4.8-10.8)
[2021-06-19 05:28] LABS: Anion Gap 12 mmol/L (10-20); BUN (Urea Nitrogen) 18 mg/dL (9.8-20.1); Calc. Creatinine Clearance 51 mL/min (70-130); Calcium 8.7 mg/dL (7.8-10.44); Carbon Dioxide 23 mmol/L (23-31); Chloride 105 mmol/L (98-107); Glucose 101 mg/dL (83-110); Potassium 3.9 mmol/L (3.5-5.1); Sodium 136 mmol/L (136-145)
[2021-06-19] MEDS: Mometasone 100 MCG/Formoterol 5 MCG 120 PUFF INHALER INH SCH ×2 (07:34→19:46)
[2021-06-19] MEDS: Enoxaparin Sodium 40 MG/0.4 ML SYRINGE SC SCH (08:15)
[2021-06-19] MEDS: Clopidogrel Bisulfate 75 MG TAB PO SCH (08:16)
[2021-06-19] MEDS: Zinc Sulfate 220 MG CAP PO SCH (08:16)
[2021-06-19] MEDS: Ezetimibe 10 MG TAB PO SCH (13:27)
[2021-06-19] MEDS: Lisinopril 10 MG TAB PO SCH (13:27)
[2021-06-19] MEDS: Topiramate 25 MG TAB PO SCH (13:31)
[2021-06-19] MEDS: CALCIUM CARB PO SCH ×2 (13:31→22:26)
[2021-06-19] MEDS: VITAMIN D3 PO SCH ×2 (13:31→22:26)
[2021-06-19] MEDS: VIT K1 PO SCH ×2 (13:31→22:26)
[2021-06-19] MEDS: Atorvastatin Calcium 40 MG TAB PO SCH (22:13)
[2021-06-19] MEDS ORDERED: Melatonin 3 MG TAB PO SCH (22:16)
[2021-06-20 05:08] LABS: #Basophils 0.1 thou/uL (0.0-0.2); #Eosinphils 0.2 thou/uL (0.0-0.7); #Lymphocytes 1.3 thou/uL (1.20-3.40); #Monocytes 0.7 thou/uL (0.11-0.59); #Neutrophils 4.4 thou/uL (1.40-6.50); %Basophils 0.9 % (0.0-1.0); %Monocytes 10.8 % (0.0-10.0); %Neutrophils 66.4 % (42.0-75.0); Hemoglobin 9.7 g/dL (12.0-16.0); Mean Corpuscular HGB CONC 31.9 g/dL (32.0-36.0); Mean Corpuscular Hemoglobin 27.9 pg (27.0-31.0); Mean Corpuscular Volume 87.5 fL (78.0-98.0); Mean Platelet Volume 6.7 fL (7.4-10.4); Platelet Count 276 thou/uL (130-400); RBC Distribution Width 14.1 % (11.5-14.5); Red Blood Cell (RBC) Count 3.49 mill/uL (4.20-5.40); White Blood Cell (WBC) Count 6.7 thou/uL (4.8-10.8)
[2021-06-20 05:25] LABS: Anion Gap 12 mmol/L (10-20); BUN (Urea Nitrogen) 17 mg/dL (9.8-20.1); Calc. Creatinine Clearance 50 mL/min (70-130); Calcium 8.8 mg/dL (7.8-10.44); Carbon Dioxide 23 mmol/L (23-31); Chloride 106 mmol/L (98-107); Glucose 105 mg/dL (83-110); Potassium 4.2 mmol/L (3.5-5.1); Sodium 137 mmol/L (136-145)
[2021-06-20] MEDS: Mometasone 100 MCG/Formoterol 5 MCG 120 PUFF INHALER INH SCH (07:20)
[2021-06-20] MEDS: CALCIUM CARB PO SCH (09:30)
[2021-06-20] MEDS: Zinc Sulfate 220 MG CAP PO SCH (09:30)
[2021-06-20] MEDS: VITAMIN D3 PO SCH (09:30)
[2021-06-20] MEDS: VIT K1 PO SCH (09:30)
[2021-06-20] MEDS: Clopidogrel Bisulfate 75 MG TAB PO SCH (09:30)
[2021-06-20] MEDS: Enoxaparin Sodium 40 MG/0.4 ML SYRINGE SC SCH (09:30)
[2021-06-20 15:49] VITALS: BP 151/82; TEMP 98
== END 2021-06-20 18:55 | disposition home or self-care (01) | DRG 69 ==
LOC: ERS 17:50 → NEURO 21:17 → OBSVTOIN 06-18 18:08
PROVIDERS: ADMIT Internal Medicine; ATTEND Hospitalist
DX: G45.9 Transient cerebral ischemic attack, unspecified (principal); I50.32 Chronic diastolic (congestive) heart failure; R47.01 Aphasia; Z20.822 Contact with and (suspected) exposure to COVID-19; I11.0 Hypertensive heart disease with heart failure; I25.10 Atherosclerotic heart disease of native coronary artery without angina pectoris; I49.5 Sick sinus syndrome; E78.5 Hyperlipidemia, unspecified; J45.909 Unspecified asthma, uncomplicated; D64.9 Anemia, unspecified; R29.700 NIHSS score 0; E78.00 Pure hypercholesterolemia, unspecified; G43.909 Migraine, unspecified, not intractable, without status migrainosus; R47.1 Dysarthria and anarthria; Z86.73 Personal history of transient ischemic attack (TIA), and cerebral infarction without residual deficits; Z79.02 Long term (current) use of antithrombotics/antiplatelets; Z88.6 Allergy status to analgesic agent; Z88.8 Allergy status to other drugs, medicaments and biological substances; Z95.0 Presence of cardiac pacemaker; Z79.899 Other long term (current) drug therapy; Z90.49 Acquired absence of other specified parts of digestive tract; Z90.89 Acquired absence of other organs; Z90.721 Acquired absence of ovaries, unilateral
CPT/HCPCS: 36415; 36416; 70450; 70551; 71045; 80048; 80053; 80061; 81003; 82550; 84484; 85025; 85610; 85730; 93005; 93306; 95712; 95819; 95957; 96372; G0378; J1650; U0003; U0005

== ENCOUNTER 2021-08-08 11:10 | Inpatient (IN) | payer MEDICARE, BC ==
[2021-08-08 12:46] LABS: #Eosinphils 0.1 thou/uL (0.0-0.7); #Monocytes 0.4 thou/uL (0.11-0.59); #Neutrophils 4.5 thou/uL (1.40-6.50); %Basophils 0.6 % (0.0-1.0); %Lymphocytes 16.8 % (21.0-51.0); %Neutrophils 73.6 % (42.0-75.0); Mean Corpuscular HGB CONC 32.4 g/dL (32.0-36.0); Mean Corpuscular Hemoglobin 29.6 pg (27.0-31.0); Mean Corpuscular Volume 91.3 fL (78.0-98.0); Mean Platelet Volume 6.7 fL (7.4-10.4); Platelet Count 270 thou/uL (130-400); RBC Distribution Width 17.6 % (11.5-14.5); Red Blood Cell (RBC) Count 4.05 mill/uL (4.20-5.40); White Blood Cell (WBC) Count 6.1 thou/uL (4.8-10.8)
[2021-08-08 13:21] LABS: ALT (SGPT) 24 U/L (8-55); AST (SGOT) 25 U/L (5-34); Albumin 4.2 g/dL (3.4-4.8); Alkaline Phosphatase 123 U/L (40-110); Anion Gap 14 mmol/L (10-20); BUN (Urea Nitrogen) 17 mg/dL (9.8-20.1); Bilirubin, Total 0.6 mg/dL (0.2-1.2); CK (CPK) 134 U/L (29-168); Calc. Creatinine Clearance 0 mL/min (70-130); Calcium 9.6 mg/dL (7.8-10.44); Carbon Dioxide 25 mmol/L (23-31); Chloride 101 mmol/L (98-107); Globulin 2.8 g/dL (2.4-3.5); Glucose 112 mg/dL (83-110); Potassium 4.1 mmol/L (3.5-5.1); Sodium 136 mmol/L (136-145)
[2021-08-08 15:26] LABS: Bilirubin Negative (Negative); Blood, Urine Negative (Negative); Clarity Clear (Clear); Glucose, Urine (Dipstick) Normal (Negative); Ketone, Urine Negative (Negative); Leukocyte Negative Leu/uL (Negative); Nitrite Negative (Negative); Protein, Urine (Dipstick) Negative (Neg-Trace); Specific Gravity, Urine 1.007 (1.002-1.036); Urobilinogen Normal mg/dL (Less than 2); pH, Urine 6.5 (5.0-9.0)
[2021-08-08 16:00] VITALS: BMI 21.4
[2021-08-08 17:53] LABS: SARS-CoV-2 NAA Rapid Test Not Detected (NotDetected)
[2021-08-08] MEDS ORDERED: hydrALAZINE 20 MG/ML VIAL SLOW IVP PRN (18:00)
[2021-08-08] MEDS ORDERED: Clopidogrel Bisulfate 75 MG TAB PO SCH (18:30)
[2021-08-08] MEDS ORDERED: Albuterol Sulfate 2.5 mg/3 ml Neb NEB PRN (18:37)
[2021-08-08] MEDS: Atorvastatin Calcium 40 MG TAB PO SCH (20:51)
[2021-08-08] MEDS ORDERED: Melatonin 3 MG TAB PO PRN (23:12)
[2021-08-08] MEDS: Acetaminophen 325 MG TAB PO PRN (23:23)
[2021-08-09 05:38] LABS: Cardiac Risk 2.8 (Less than 4.5)
[2021-08-09] MEDS: Mometasone 200 MCG/PUFF (1 INHALER) INH SCH ×2 (07:44→18:07)
[2021-08-09] MEDS: Enoxaparin Sodium 40 MG/0.4 ML SYRINGE SC SCH (10:50)
[2021-08-09] MEDS: Zinc Sulfate 220 MG CAP PO SCH (10:50)
[2021-08-09] MEDS: Cyanocobalamin (Vitamin B-12) 1,000 MCG TAB PO SCH (10:51)
[2021-08-09] MEDS: Clopidogrel Bisulfate 75 MG TAB PO SCH (10:51)
[2021-08-09] MEDS: Iron Polysaccharides Complex 150 MG CAP PO SCH (10:52)
[2021-08-09] MEDS: Acetaminophen 325 MG TAB PO PRN ×2 (15:45→20:41)
[2021-08-09] MEDS: Atorvastatin Calcium 40 MG TAB PO SCH (20:41)
[2021-08-10] MEDS: Zinc Sulfate 220 MG CAP PO SCH (08:21)
[2021-08-10] MEDS: Cyanocobalamin (Vitamin B-12) 1,000 MCG TAB PO SCH (08:21)
[2021-08-10] MEDS: Enoxaparin Sodium 40 MG/0.4 ML SYRINGE SC SCH (08:21)
[2021-08-10] MEDS: Clopidogrel Bisulfate 75 MG TAB PO SCH (08:21)
[2021-08-10] MEDS: Mometasone 200 MCG/PUFF (1 INHALER) INH SCH ×2 (08:22→19:19)
[2021-08-10] MEDS: Iron Polysaccharides Complex 150 MG CAP PO SCH (08:22)
[2021-08-10] MEDS: Atorvastatin Calcium 40 MG TAB PO SCH (20:09)
[2021-08-10] MEDS ORDERED: hydrOXYzine 10 MG TAB PO PRN (23:13)
[2021-08-11] MEDS: Mometasone 200 MCG/PUFF (1 INHALER) INH SCH ×2 (08:19→19:09)
[2021-08-11] MEDS: Iron Polysaccharides Complex 150 MG CAP PO SCH (08:41)
[2021-08-11] MEDS: Cyanocobalamin (Vitamin B-12) 1,000 MCG TAB PO SCH (08:41)
[2021-08-11] MEDS: Clopidogrel Bisulfate 75 MG TAB PO SCH (08:41)
[2021-08-11] MEDS: Enoxaparin Sodium 40 MG/0.4 ML SYRINGE SC SCH (08:41)
[2021-08-11] MEDS: Zinc Sulfate 220 MG CAP PO SCH (08:41)
[2021-08-11] MEDS: Atorvastatin Calcium 40 MG TAB PO SCH (21:12)
[2021-08-12] MEDS: Mometasone 200 MCG/PUFF (1 INHALER) INH SCH (07:38)
[2021-08-12] MEDS: Clopidogrel Bisulfate 75 MG TAB PO SCH (08:13)
[2021-08-12] MEDS: Zinc Sulfate 220 MG CAP PO SCH (08:13)
[2021-08-12] MEDS: Iron Polysaccharides Complex 150 MG CAP PO SCH (08:13)
[2021-08-12] MEDS: Cyanocobalamin (Vitamin B-12) 1,000 MCG TAB PO SCH (08:13)
[2021-08-12] MEDS: Enoxaparin Sodium 40 MG/0.4 ML SYRINGE SC SCH (08:14)
[2021-08-12 12:05] VITALS: TEMP 97.1
[2021-08-12 12:58] VITALS: BP 151/83
== END 2021-08-12 15:53 | disposition home or self-care (01) | DRG 92 ==
LOC: ERS 11:10 → NEURO 14:34 → OBSVTOIN 08-10 14:30
PROVIDERS: ADMIT Internal Medicine; ATTEND Emergency Medicine
DX: R26.0 Ataxic gait (principal); I50.32 Chronic diastolic (congestive) heart failure; T42.4X5A Adverse effect of benzodiazepines, initial encounter; Z20.822 Contact with and (suspected) exposure to COVID-19; I95.1 Orthostatic hypotension; K21.9 Gastro-esophageal reflux disease without esophagitis; D50.9 Iron deficiency anemia, unspecified; J45.20 Mild intermittent asthma, uncomplicated; F41.9 Anxiety disorder, unspecified; I49.5 Sick sinus syndrome; G43.909 Migraine, unspecified, not intractable, without status migrainosus; I11.0 Hypertensive heart disease with heart failure; F51.04 Psychophysiologic insomnia; I25.10 Atherosclerotic heart disease of native coronary artery without angina pectoris; Z95.0 Presence of cardiac pacemaker; Z79.899 Other long term (current) drug therapy; Z90.710 Acquired absence of both cervix and uterus; Z88.6 Allergy status to analgesic agent; Z90.49 Acquired absence of other specified parts of digestive tract; Z90.09 Acquired absence of other part of head and neck; Z98.890 Other specified postprocedural states; Z79.51 Long term (current) use of inhaled steroids; Z86.73 Personal history of transient ischemic attack (TIA), and cerebral infarction without residual deficits
CPT/HCPCS: 36415; 70450; 70551; 70552; 71045; 71275; 72148; 80053; 80061; 81003; 82550; 82565; 83880; 84484; 85025; 85027; 85610; 85730; 86850; 86900; 86901; 93005; 93010; J1650; Q9967; U0002; U0003; U0005

== ENCOUNTER 2021-09-15 05:34 | Emergency (ER) | payer MEDICARE, BC ==
[2021-09-15] MEDS ORDERED: cloNIDine 0.1 MG TAB ONE (05:49)
== END 2021-09-15 07:12 | disposition home or self-care (01) ==
LOC: ERS 05:34
DX: I10 Essential (primary) hypertension (principal); E78.5 Hyperlipidemia, unspecified; E78.00 Pure hypercholesterolemia, unspecified
CPT/HCPCS: 93005

== ENCOUNTER 2021-10-01 14:06 | Emergency (ER) | payer MEDICARE, BC ==
[2021-10-01] MEDS ORDERED: cloNIDine 0.1 MG TAB ONE (14:20)
[2021-10-01 14:30] LABS: #Basophils 0.1 thou/uL (0.0-0.2); #Eosinphils 0.1 thou/uL (0.0-0.7); #Lymphocytes 1.2 thou/uL (1.20-3.40); #Monocytes 1.1 thou/uL (0.11-0.59); #Neutrophils 9.3 thou/uL (1.40-6.50); %Basophils 0.7 % (0.0-1.0); %Eosinophils 0.6 % (0.0-10.0); %Lymphocytes 10.5 % (21.0-51.0); %Monocytes 9.2 % (0.0-10.0); Hemoglobin 12.9 g/dL (12.0-16.0); Mean Corpuscular HGB CONC 33.2 g/dL (32.0-36.0); Mean Corpuscular Hemoglobin 31.1 pg (27.0-31.0); Mean Corpuscular Volume 93.8 fL (78.0-98.0); Mean Platelet Volume 6.4 fL (7.4-10.4); Platelet Count 300 thou/uL (130-400); RBC Distribution Width 15.2 % (11.5-14.5); Red Blood Cell (RBC) Count 4.15 mill/uL (4.20-5.40); White Blood Cell (WBC) Count 11.8 thou/uL (4.8-10.8)
[2021-10-01 14:39] LABS: PTT 30.3 sec (22.9-36.1); Prothrombin Time 11.8 sec (12.0-14.7)
[2021-10-01 14:40] LABS: INR-International Normal Ratio 0.9
[2021-10-01 14:58] LABS: ALT (SGPT) 26 U/L (8-55); AST (SGOT) 23 U/L (5-34); Albumin 4.5 g/dL (3.4-4.8); Alkaline Phosphatase 111 U/L (40-110); Anion Gap 15 mmol/L (10-20); BUN (Urea Nitrogen) 14 mg/dL (9.8-20.1); Bilirubin, Total 0.9 mg/dL (0.2-1.2); CK (CPK) 133 U/L (29-168); Calc. Creatinine Clearance 0 mL/min (70-130); Calcium 9.8 mg/dL (7.8-10.44); Carbon Dioxide 23 mmol/L (23-31); Chloride 101 mmol/L (98-107); Glucose 104 mg/dL (83-110); Potassium 4.2 mmol/L (3.5-5.1); Protein, Total 7.5 g/dL (5.8-8.1); Sodium 135 mmol/L (136-145)
== END 2021-10-01 16:15 | disposition home or self-care (01) ==
LOC: ERS 14:06
DX: I16.0 Hypertensive urgency (principal); E78.5 Hyperlipidemia, unspecified; E78.00 Pure hypercholesterolemia, unspecified; I10 Essential (primary) hypertension; J45.909 Unspecified asthma, uncomplicated; Z79.02 Long term (current) use of antithrombotics/antiplatelets; Z79.899 Other long term (current) drug therapy
CPT/HCPCS: 70450; 70496; 70498; 71045; 80053; 82550; 84484; 85025; 85610; 85730; 93005; Q9967

== ENCOUNTER 2021-10-06 12:33 | Emergency (ER) | payer MEDICARE, BC | END 2021-10-06 13:41 | disposition left against medical advice (07) | LOC: ERS 12:33 | DX: Z53.21 Procedure and treatment not carried out due to patient leaving prior to being seen by health care provider (principal) ==

== ENCOUNTER 2021-10-11 11:56 | Emergency (ER) | payer MEDICARE, BC ==
[2021-10-11 14:02] LABS: #Eosinphils 0.1 thou/uL (0.0-0.7); #Monocytes 0.8 thou/uL (0.11-0.59); #Neutrophils 6.1 thou/uL (1.40-6.50); %Basophils 0.4 % (0.0-1.0); %Eosinophils 0.7 % (0.0-10.0); %Lymphocytes 12.4 % (21.0-51.0); %Monocytes 9.7 % (0.0-10.0); %Neutrophils 76.9 % (42.0-75.0); Mean Corpuscular HGB CONC 32.4 g/dL (32.0-36.0); Mean Corpuscular Hemoglobin 30.6 pg (27.0-31.0); Mean Corpuscular Volume 94.2 fL (78.0-98.0); Mean Platelet Volume 6.7 fL (7.4-10.4); Platelet Count 292 thou/uL (130-400); RBC Distribution Width 14.5 % (11.5-14.5); Red Blood Cell (RBC) Count 3.93 mill/uL (4.20-5.40)
[2021-10-11 14:33] LABS: ALT (SGPT) 20 U/L (8-55); AST (SGOT) 18 U/L (5-34); Albumin 4.3 g/dL (3.4-4.8); Alkaline Phosphatase 109 U/L (40-110); Anion Gap 15 mmol/L (10-20); BUN (Urea Nitrogen) 11 mg/dL (9.8-20.1); Bilirubin, Total 0.8 mg/dL (0.2-1.2); Calc. Creatinine Clearance 0 mL/min (70-130); Calcium 9.3 mg/dL (7.8-10.44); Carbon Dioxide 24 mmol/L (23-31); Chloride 96 mmol/L (98-107); Globulin 2.3 g/dL (2.4-3.5); Glucose 113 mg/dL (83-110); Lipase 85 U/L (8-78); Potassium 4.6 mmol/L (3.5-5.1); Protein, Total 6.6 g/dL (5.8-8.1); Sodium 130 mmol/L (136-145)
[2021-10-11 15:09] LABS: Bilirubin Negative (Negative); Blood, Urine Negative (Negative); Clarity Clear (Clear); Glucose, Urine (Dipstick) Normal (Negative); Ketone, Urine Negative (Negative); Leukocyte Negative Leu/uL (Negative); Nitrite Negative (Negative); Protein, Urine (Dipstick) Negative (Neg-Trace); Specific Gravity, Urine 1.008 (1.002-1.036); Urobilinogen Normal mg/dL (Less than 2)
== END 2021-10-11 16:50 | disposition home or self-care (01) ==
LOC: ERS 11:56
DX: I10 Essential (primary) hypertension (principal); E78.00 Pure hypercholesterolemia, unspecified; J45.909 Unspecified asthma, uncomplicated; Z79.02 Long term (current) use of antithrombotics/antiplatelets; Z79.899 Other long term (current) drug therapy
CPT/HCPCS: 36415; 71045; 80053; 81003; 83690; 83880; 84484; 85025; 93005

== ENCOUNTER 2021-11-10 05:21 | Emergency (ER) | payer MEDICARE, BC ==
[2021-11-10] MEDS ORDERED: diphenhydrAMINE 50 MG/ML VIAL ONE (05:47)
[2021-11-10] MEDS ORDERED: Dexamethasone 10 MG/ML VIAL ONE (08:15)
[2021-11-10] MEDS ORDERED: Acetaminophen 500 MG TAB ONE (09:31)
[2021-11-10] MEDS ORDERED: Ketorolac Tromethamine 30 MG/ML VIAL ONE (09:31)
== END 2021-11-10 10:30 | disposition home or self-care (01) ==
LOC: ERS 05:21
DX: G43.909 Migraine, unspecified, not intractable, without status migrainosus (principal); I10 Essential (primary) hypertension; E78.5 Hyperlipidemia, unspecified; Z79.899 Other long term (current) drug therapy
CPT/HCPCS: 70450; 96365; 96375; J1100; J1200; J1885; J2765

== ENCOUNTER 2021-11-22 05:30 | Emergency (ER) | payer MEDICARE, BC ==
[2021-11-22] MEDS ORDERED: Ondansetron ODT 4 MG TAB ONE (05:55)
[2021-11-22 06:44] LABS: Bilirubin Negative (Negative); Blood, Urine Negative (Negative); Clarity Turbid (Clear); Glucose, Urine (Dipstick) Normal (Negative); Ketone, Urine Negative (Negative); Leukocyte Negative Leu/uL (Negative); Nitrite Negative (Negative); Protein, Urine (Dipstick) Negative (Neg-Trace); Specific Gravity, Urine 1.008 (1.002-1.036); Urobilinogen Normal mg/dL (Less than 2)
[2021-11-22 06:45] LABS: #Eosinphils 0.1 thou/uL (0.0-0.7); #Lymphocytes 1.3 thou/uL (1.20-3.40); #Monocytes 0.9 thou/uL (0.11-0.59); #Neutrophils 7.6 thou/uL (1.40-6.50); %Basophils 0.2 % (0.0-1.0); %Eosinophils 0.8 % (0.0-10.0); %Lymphocytes 13.1 % (21.0-51.0); %Monocytes 8.9 % (0.0-10.0); %Neutrophils 77.1 % (42.0-75.0); Hemoglobin 12.2 g/dL (12.0-16.0); Mean Corpuscular HGB CONC 34.1 g/dL (32.0-36.0); Mean Corpuscular Hemoglobin 31.6 pg (27.0-31.0); Mean Corpuscular Volume 92.7 fL (78.0-98.0); Mean Platelet Volume 6.3 fL (7.4-10.4); Platelet Count 311 thou/uL (130-400); RBC Distribution Width 12.8 % (11.5-14.5); Red Blood Cell (RBC) Count 3.87 mill/uL (4.20-5.40); White Blood Cell (WBC) Count 9.8 thou/uL (4.8-10.8)
[2021-11-22 07:05] LABS: ALT (SGPT) 23 U/L (8-55); AST (SGOT) 17 U/L (5-34); Albumin 4.1 g/dL (3.4-4.8); Alkaline Phosphatase 100 U/L (40-110); Anion Gap 13 mmol/L (10-20); BUN (Urea Nitrogen) 10 mg/dL (9.8-20.1); Bilirubin, Total 0.9 mg/dL (0.2-1.2); Calc. Creatinine Clearance 0 mL/min (70-130); Calcium 9.5 mg/dL (7.8-10.44); Carbon Dioxide 24 mmol/L (23-31); Chloride 101 mmol/L (98-107); Estimated GFR 83; Globulin 2.5 g/dL (2.4-3.5); Glucose 117 mg/dL (83-110); Potassium 4.1 mmol/L (3.5-5.1); Protein, Total 6.6 g/dL (5.8-8.1); Sodium 134 mmol/L (136-145)
[2021-11-22] MEDS ORDERED: Promethazine HCl 25 MG/ML VIAL IM SCH (07:15)
== END 2021-11-22 08:05 | disposition home or self-care (01) ==
LOC: ERS 05:30
DX: S06.0X0A Concussion without loss of consciousness, initial encounter (principal); I10 Essential (primary) hypertension; E78.5 Hyperlipidemia, unspecified; E78.00 Pure hypercholesterolemia, unspecified; J45.909 Unspecified asthma, uncomplicated; W06.XXXA Fall from bed, initial encounter; Z86.73 Personal history of transient ischemic attack (TIA), and cerebral infarction without residual deficits; Z79.899 Other long term (current) drug therapy
CPT/HCPCS: 36415; 70450; 80053; 81003; 82248; 85025; 96372; J2550; Q0162

== ENCOUNTER 2023-03-05 07:57 | Inpatient (IN) | payer MEDICARE, BC ==
[2023-03-05] MEDS ORDERED: Acetaminophen 500 MG TAB ONE (08:20)
[2023-03-05 08:44] LABS: #Basophils 0.1 thou/uL (0.0-0.2); #Eosinphils 0.3 thou/uL (0.0-0.7); #Monocytes 0.5 thou/uL (0.11-0.59); #Neutrophils 4.6 thou/uL (1.40-6.50); %Basophils 1.5 % (0.0-1.0); %Eosinophils 4.2 % (0.0-10.0); %Lymphocytes 18.1 % (21.0-51.0); %Neutrophils 67.9 % (42.0-75.0); Hematocrit 37.9 % (36.0-47.0); Hemoglobin 12.5 g/dL (12.0-16.0); Mean Corpuscular Hemoglobin 31.9 pg (27.0-31.0); Mean Corpuscular Volume 96.7 fl (78.0-98.0); Mean Platelet Volume 9.4 fL (7.4-10.4); Platelet Count 258 10x3/uL (130-400); Red Blood Cell (RBC) Count 3.92 mill/uL (4.20-5.40); White Blood Cell (WBC) Count 6.7 10x3/uL (4.8-10.8)
[2023-03-05 09:06] LABS: ALT (SGPT) 23 U/L (8-55); AST (SGOT) 17 U/L (5-34); Albumin 4.7 g/dL (3.4-4.8); Alkaline Phosphatase 150 U/L (40-110); Anion Gap 14 mmol/L (10-20); BUN (Urea Nitrogen) 22 mg/dL (9.8-20.1); Bilirubin, Total 0.9 mg/dL (0.2-1.2); Calc. Creatinine Clearance 0 mL/min (70-130); Calcium 9.8 mg/dL (7.8-10.44); Carbon Dioxide 20 mmol/L (23-31); Chloride 109 mmol/L (98-107); Estimated GFR 70; Globulin 2.5 g/dL (2.4-3.5); Glucose 99 mg/dL (83-110); Potassium 4.1 mmol/L (3.5-5.1); Protein, Total 7.2 g/dL (5.8-8.1); Sodium 139 mmol/L (136-145)
[2023-03-05] MEDS ORDERED: Iopamidol-370 76% 500 ML MDV (1 ML CHARGE) ONE (09:14)
[2023-03-05 12:17] LABS: Bilirubin Negative (Negative); Blood, Urine Negative (Negative); CAUTI Indications for Culture Dysuria,urgency,freq; Clarity Clear (Clear); Glucose, Urine (Dipstick) Normal (Negative); Ketone, Urine Negative (Negative); Leukocyte 250 Leu/uL (Negative); Nitrite Negative (Negative); Protein, Urine (Dipstick) Negative (Neg-Trace); RBC/HPF 0-3 HPF (0-3); Specific Gravity, Urine 1.041 (1.002-1.036); Squamous Epithelial 0-3 HPF (0-3); Urobilinogen Normal mg/dL (Less than 2); pH, Urine 7.5 (5.0-9.0)
[2023-03-05 12:18] LABS: Bacteria/HPF 1+ HPF (None Seen)
[2023-03-05 12:19] LABS: Urine Culture Reflex Yes Yes
[2023-03-05] MEDS ORDERED: Sodium Chloride 0.9% 100 ML ONE (12:43)
[2023-03-05] MEDS ORDERED: cefTRIAXone (ROCEPHIN) 1 GM VIAL ONE (12:43)
[2023-03-05] MEDS ORDERED: Ondansetron ODT 4 MG TAB PO PRN (14:02)
[2023-03-05] MEDS ORDERED: Ondansetron PF 4 MG/2 ML Vial IVP PRN (14:02)
[2023-03-05] MEDS ORDERED: hydrALAZINE 20 MG/ML VIAL SLOW IVP PRN (14:02)
[2023-03-05] MEDS ORDERED: Acetaminophen 325 MG TAB PO PRN (14:02)
[2023-03-05] MEDS ORDERED: Acetaminophen 650 MG Suppository PR PRN (14:02)
[2023-03-05] MEDS ORDERED: Lactated Ringer's 1,000 ML IV SCH (14:15)
[2023-03-05] MEDS ORDERED: Electrolyte Replacement Protocol 1 EACH FS SCH (14:15)
[2023-03-05] MEDS ORDERED: Albuterol HFA (OR) 200 PUFF INH INH PRN (14:16)
[2023-03-05 15:05] VITALS: BMI 17.7
[2023-03-05] MEDS: Atorvastatin Calcium 40 MG TAB PO SCH (21:36)
[2023-03-06] MEDS: Clopidogrel Bisulfate 75 MG TAB PO SCH (09:29)
[2023-03-06] MEDS: cefTRIAXone\\ROCEPHIN 1 GM in Sodium Chloride 0.9% 100 ML IVPB SCH (14:41)
[2023-03-06 15:37] LABS: Campy jejuni + coli by PCR Negative (Negative); STEC Shiga Toxin 1+2 Negative (Negative); Salmonella spp. by PCR Negative (Negative); Shigella spp + EIEC by PCR Negative (Negative)
[2023-03-06] MEDS: Atorvastatin Calcium 40 MG TAB PO SCH (21:02)
[2023-03-07 04:26] LABS: Cardiac Risk 2.9 (Less than 4.5)
[2023-03-07] MEDS: Saccharomyces boulardii 250 MG CAP PO SCH (09:26)
[2023-03-07] MEDS: Clopidogrel Bisulfate 75 MG TAB PO SCH (09:26)
[2023-03-07] MEDS: cefTRIAXone\\ROCEPHIN 1 GM in Sodium Chloride 0.9% 100 ML IVPB SCH (14:37)
[2023-03-07] MEDS: Atorvastatin Calcium 40 MG TAB PO SCH (21:22)
[2023-03-08] MEDS: Clopidogrel Bisulfate 75 MG TAB PO SCH (08:46)
[2023-03-08] MEDS: Saccharomyces boulardii 250 MG CAP PO SCH (08:46)
[2023-03-08] MEDS: cefTRIAXone\\ROCEPHIN 1 GM in Sodium Chloride 0.9% 100 ML IVPB SCH (14:06)
[2023-03-08] MEDS: Atorvastatin Calcium 40 MG TAB PO SCH (20:50)
[2023-03-09 08:44] VITALS: TEMP 97.8
[2023-03-09] MEDS ORDERED: fentaNYL 50 mcg/mL 1 mL Vial ONE (10:41)
[2023-03-09] MEDS ORDERED: PROPOFOL 20 ML ONE (10:42)
[2023-03-09] MEDS ORDERED: PHENYLEPHRINE-NS 100 MCG/ML 10 ML SYRINGE ONE (11:10)
[2023-03-09] MEDS ORDERED: PROPOFOL 200 MG/20 ML VIAL ONE (11:10)
[2023-03-09] MEDS ORDERED: Ondansetron HCl/PF 4 MG/2 ML Vial IVP PRN (11:38)
[2023-03-09] MEDS ORDERED: Promethazine HCl 25 MG/ML VIAL IM PRN (11:38)
[2023-03-09] MEDS: Saccharomyces boulardii 250 MG CAP PO SCH (12:25)
[2023-03-09] MEDS: Clopidogrel Bisulfate 75 MG TAB PO SCH (12:25)
[2023-03-09 15:44] VITALS: BP 157/68
== END 2023-03-09 16:15 | disposition home or self-care (01) | DRG 64 ==
LOC: ERS 07:57 → OBSVTOIN 13:18 → ERHOLD 13:18 → 2SE 20:10
PROVIDERS: ADMIT Internal Medicine; ATTEND Internal Medicine
PROC: 4A00X4Z Measurement of Central Nervous Electrical Activity, External Approach (ICD-10-PCS; principal; 2023-03-06)
DX: I63.9 Cerebral infarction, unspecified (principal); G93.41 Metabolic encephalopathy; C18.9 Malignant neoplasm of colon, unspecified; I50.32 Chronic diastolic (congestive) heart failure; N39.0 Urinary tract infection, site not specified; I11.0 Hypertensive heart disease with heart failure; J45.909 Unspecified asthma, uncomplicated; I25.10 Atherosclerotic heart disease of native coronary artery without angina pectoris; I49.5 Sick sinus syndrome; D64.9 Anemia, unspecified; G47.00 Insomnia, unspecified; K21.9 Gastro-esophageal reflux disease without esophagitis; F41.9 Anxiety disorder, unspecified; K52.9 Noninfective gastroenteritis and colitis, unspecified; R53.1 Weakness; E78.00 Pure hypercholesterolemia, unspecified; R47.1 Dysarthria and anarthria; I25.2 Old myocardial infarction; Z88.8 Allergy status to other drugs, medicaments and biological substances; Z79.899 Other long term (current) drug therapy; Z95.0 Presence of cardiac pacemaker; Z98.890 Other specified postprocedural states; Z90.49 Acquired absence of other specified parts of digestive tract; Z90.89 Acquired absence of other organs; Z80.0 Family history of malignant neoplasm of digestive organs
CPT/HCPCS: 36415; 36416; 70496; 70498; 70551; 71046; 80053; 80061; 81001; 84443; 85025; 87077; 87086; 87186; 87505; 93005; 93306; 93312; 95711; 95819; 96365; J0696; J2704; J3010; J3490; Q9967

== ENCOUNTER 2023-03-21 13:52 | Outpatient (CLI) | payer MEDICARE, BC ==
[~2023-03-21 13:52] MED LIST changes: +Iopamidol 370 76% 100 ML VIAL ONE; -Iopamidol-370 76% 500 ML 1 ML ONE
== END 2023-03-21 13:53 | disposition home or self-care (01) ==
LOC: BICCT 13:52
PROVIDERS: ATTEND Internal Medicine Hematology & Oncology
DX: C18.9 Malignant neoplasm of colon, unspecified (principal); I70.0 Atherosclerosis of aorta; I25.10 Atherosclerotic heart disease of native coronary artery without angina pectoris; S22.089A Unspecified fracture of T11-T12 vertebra, initial encounter for closed fracture; N20.0 Calculus of kidney; J98.11 Atelectasis; M47.9 Spondylosis, unspecified; J39.8 Other specified diseases of upper respiratory tract; Z95.0 Presence of cardiac pacemaker; Z90.49 Acquired absence of other specified parts of digestive tract
CPT/HCPCS: 71260; Q9967

== ENCOUNTER 2024-01-10 11:28 | Day surgery (SDC) | payer MEDICARE ==
[2024-01-09 12:15] VITALS: BMI 18.7
[2024-01-10] MEDS ORDERED: PROPOFOL 20 ML ONE (13:22)
[2024-01-10] MEDS ORDERED: Lidocaine 2% PF 5 ML VIAL ONE (13:38)
== END 2024-01-10 15:05 | disposition home or self-care (01) ==
LOC: SDC 11:28
PROVIDERS: ATTEND Internal Medicine Gastroenterology
PROC: 0DBN8ZZ Excision of Sigmoid Colon, Via Natural or Artificial Opening Endoscopic (ICD-10-PCS; principal; 2024-01-10)
DX: Z12.11 Encounter for screening for malignant neoplasm of colon (principal); K63.5 Polyp of colon; K64.8 Other hemorrhoids; K62.89 Other specified diseases of anus and rectum; K21.9 Gastro-esophageal reflux disease without esophagitis; D64.9 Anemia, unspecified; J45.909 Unspecified asthma, uncomplicated; I10 Essential (primary) hypertension; K58.9 Irritable bowel syndrome, unspecified; M19.90 Unspecified osteoarthritis, unspecified site; B15.9 Hepatitis A without hepatic coma; Z88.1 Allergy status to other antibiotic agents; Z88.6 Allergy status to analgesic agent; Z86.73 Personal history of transient ischemic attack (TIA), and cerebral infarction without residual deficits; Z80.0 Family history of malignant neoplasm of digestive organs; Z90.49 Acquired absence of other specified parts of digestive tract; Z98.890 Other specified postprocedural states; Z98.51 Tubal ligation status; Z95.5 Presence of coronary angioplasty implant and graft; Z88.8 Allergy status to other drugs, medicaments and biological substances
CPT/HCPCS: 45385; J2001; J2704; 88305

== ENCOUNTER 2024-03-03 07:55 | Outpatient (CLI) | payer MEDICARE ==
[2024-03-03] MEDS ORDERED: Iopamidol 370 76% 100 ML VIAL ONE (10:35)
== END 2024-03-03 07:56 | disposition home or self-care (01) ==
LOC: CT 07:55
PROVIDERS: ATTEND Internal Medicine Hematology & Oncology
DX: C18.9 Malignant neoplasm of colon, unspecified (principal)
CPT/HCPCS: 71260; 74177

== ENCOUNTER 2024-05-21 07:56 | Outpatient (CLI) | payer MEDICARE ==
[2024-05-21] MEDS ORDERED: Iopamidol 370 76% 100 ML VIAL ONE (10:48)
== END 2024-05-21 07:57 | disposition home or self-care (01) ==
LOC: CT 07:56
PROVIDERS: ATTEND Internal Medicine Hematology & Oncology
DX: C18.4 Malignant neoplasm of transverse colon (principal); D50.0 Iron deficiency anemia secondary to blood loss (chronic)
CPT/HCPCS: 36415; 71260; 74177; 82565

== ENCOUNTER 2024-12-31 07:40 | Outpatient (CLI) | payer MEDICARE ==
[2024-12-31] MEDS ORDERED: Iopamidol 370 76% 100 ML VIAL ONE (15:10)
== END 2024-12-31 07:41 | disposition home or self-care (01) ==
LOC: CT 07:40
PROVIDERS: ATTEND Internal Medicine Hematology & Oncology
DX: C18.4 Malignant neoplasm of transverse colon (principal); D50.0 Iron deficiency anemia secondary to blood loss (chronic); C78.7 Secondary malignant neoplasm of liver and intrahepatic bile duct; M89.9 Disorder of bone, unspecified; K22.89 Other specified disease of esophagus; Z90.49 Acquired absence of other specified parts of digestive tract
CPT/HCPCS: 71260; 74177; Q9967

== ENCOUNTER 2025-03-13 12:53 | Outpatient (CLI) | payer MEDICARE ==
[2025-03-13] MEDS ORDERED: Iopamidol 370 76% 100 ML VIAL ONE (14:04)
== END 2025-03-13 12:54 | disposition home or self-care (01) ==
LOC: CT 12:53
PROVIDERS: ATTEND Internal Medicine Hematology & Oncology
DX: C18.4 Malignant neoplasm of transverse colon (principal); D50.0 Iron deficiency anemia secondary to blood loss (chronic); K76.9 Liver disease, unspecified; M89.9 Disorder of bone, unspecified; K22.89 Other specified disease of esophagus; Z90.49 Acquired absence of other specified parts of digestive tract
CPT/HCPCS: 71260; 74177; Q9967